=== PATIENT | female | born 1985 | race Caucasian/White ===

== ENCOUNTER 2017-01-12 19:20 | Emergency (ER) | payer SELFPAY ==
[~2017-01-12] VITALS: Ht 170.2 cm; Wt 81.6 kg
[2017-01-12] MEDS ORDERED: FAMOTIDINE 20 MG TABLET. PO ONE (19:45)
[2017-01-12] MEDS ORDERED: LIDO:MAALOX:DONNATAL 1:1:1 15 ML SINGLE DOSE SWSW ONE (19:45)
[2017-01-12] MEDS ORDERED: ONDANSETRON ODT 4 MG TAB.RAPDIS. PO ONE (19:45)
--- NOTE | 2017-01-12 19:49 | PHYS DOC ---
Past Medical History Past Medical History: Other Additional Past Medical Histor: LUPUS Past Surgical History: Other Additional Past Surgical Histo: GASTRIC SLEEVE IN 2012 Alcohol Use: None Drug Use: None Adult General Chief Complaint Chief Complaint: ABDOMINAL PAIN HPI HPI Patient is a 31 year old female with history of gastric sleeve surgery in 2011 performed at [facility] and [facility] who presents with epigastric pain, not radiating to her back starting approximately 4 days ago. Patient also reports nausea and vomiting. Symptoms are worse with eating. It contains stomach contact an occasional bile. No hematemesis or coffee-ground emesis. No flank pain, fevers, chills, sweats, urinary frequency urgency. No other abdominal surgeries. Last menstrual period was 5 days ago. Patient has a control implant in place. [] Review of Systems Review of Systems Review symptoms as per history of present illness. All other review symptoms are negative. All other systems were reviewed and found to be within normal limits, except as documented in this note. Current Medications Current Medications Current Medications Medications (Trade) Dose Ordered Sig/Jose Start Time Stop Time Status Last Admin Dose Admin Famotidine (Pepcid) 20 mg 1X ONCE 01/12/17 19:45 01/12/17 19:46 DC 01/12/17 19:49 20 MG Fentanyl Citrate (Fentanyl 2ml Vial) 50 mcg 1X ONCE 01/12/17 20:15 01/12/17 20:16 DC 01/12/17 20:23 50 MCG Info (Do NOT chart on this entry -- for MONITORING) 1 each PRN DAILY PRN 01/12/17 21:15 01/14/17 21:14 Iohexol (Omnipaque 300 Mg/ml) 75 ml 1X ONCE 01/12/17 21:15 01/12/17 21:16 DC 01/12/17 21:19 75 ML Morphine Sulfate 10 mg STK-MED ONCE 01/12/17 21:50 01/12/17 21:51 DC Multi-Ingredient Mouthwash/Gargle (Gi Cocktail Single Dose) 15 ml 1X ONCE 01/12/17 19:45 01/12/17 19:46 DC 01/12/17 19:49 15 ML Ondansetron HCl (Zofran Odt) 4 mg 1X ONCE 01/12/17 19:45 01/12/17 19:46 DC 01/12/17 19:49 4 MG Allergies Allergies Allergies Coded Allergies Type Severity Reaction Last Updated Verified diphenhydramine Allergy Intermediate Rash 03/02/14 No gelatin Allergy Intermediate Rash 03/02/14 No tramadol Allergy Intermediate Rash 03/02/14 No Physical Exam Physical Exam Constitutional: Well developed, well nourished, discomfort secondary to pain. [] HENT: Normocephalic, atraumatic, bilateral external ears normal, oropharynx moist, no oral exudates, nose normal. [] Eyes: PERRLA, EOMI, conjunctiva normal, no discharge. [] Neck: Normal range of motion, no tenderness, supple, no stridor. [] Cardiovascular:Heart rate regular rhythm, no murmur [] Lungs & Thorax: Bilateral breath sounds clear to auscultation [] Abdomen: Bowel sounds normal, soft, epigastric pain, tenderness, no rebound rigidity or guarding. Obesity compromising examination.[] Skin: Warm, dry, no erythema, no rash. [] Back: No tenderness, no CVA tenderness. [] Extremities: No tenderness, no cyanosis, no clubbing, ROM intact, no edema. [] Current Patient Data Vital Signs Vital Signs Date Time Temp Pulse Resp B/P (MAP) Pulse Ox O2 Delivery O2 Flow Rate FiO2 01/12/17 21:53 20 97 Room Air 01/12/17 21:45 66 109/67 (81) 01/12/17 19:29 98.0 98.0 Lab Values Laboratory Tests Test 01/12/17 19:22 01/12/17 20:10 Urine Collection Type Unknown Urine Color Yellow Urine Clarity Clear Urine pH 6.0 Urine Specific [place] 1.025 Urine Protein Negative mg/dL (NEG-TRACE) Urine Glucose (UA) Negative mg/dL (NEG) Urine Ketones (Stick) Trace mg/dL (NEG) Urine Blood Large (NEG) Urine Nitrite Negative (NEG) Urine Bilirubin Negative (NEG) Urine Urobilinogen Dipstick 0.2 mg/dL (0.2 mg/dL) Urine Leukocyte Esterase Small (NEG) Urine RBC 6-10 /HPF (0-2) Urine WBC 5-10 /HPF (0-4) Urine Squamous Epithelial Cells Mod /LPF Urine Bacteria Few /HPF (0-FEW) Urine Mucus Mod /LPF Urine Trichomonas Present White Blood Count 12.3 x10^3/uL (4.0-11.0) H Red Blood Count 4.20 x10^6/uL (3.50-5.40) Hemoglobin 13.3 g/dL (12.0-15.5) Hematocrit 40.6 % (36.0-47.0) Mean Corpuscular Volume 97 fL (79-100) Mean Corpuscular Hemoglobin 32 pg (25-35) Mean Corpuscular Hemoglobin Concent 33 g/dL (31-37) Red Cell Distribution Width 12.2 % (11.5-14.5) Platelet Count 187 x10^3/uL (140-400) Neutrophils (%) (Auto) 72 % (31-73) Lymphocytes (%) (Auto) 20 % (24-48) L Monocytes (%) (Auto) 6 % (0-9) Eosinophils (%) (Auto) 1 % (0-3) Basophils (%) (Auto) 0 % (0-3) Neutrophils # (Auto) 8.8 x10^3uL (1.8-7.7) H Lymphocytes # (Auto) 2.5 x10^3/uL (1.0-4.8) Monocytes # (Auto) 0.8 x10^3/uL (0.0-1.1) Eosinophils # (Auto) 0.1 x10^3/uL (0.0-0.7) Basophils # (Auto) 0.1 x10^3/uL (0.0-0.2) Sodium Level 141 mmol/L (136-145) Potassium Level 3.9 mmol/L (3.5-5.1) Chloride Level 104 mmol/L (98-107) Carbon Dioxide Level 26 mmol/L (21-32) Anion Gap 11 (6-14) Blood Urea Nitrogen 13 mg/dL (7-20) Creatinine 0.8 mg/dL (0.6-1.0) Estimated GFR (Cockcroft-Gault) 84.2 BUN/Creatinine Ratio 16 (6-20) Glucose Level 103 mg/dL (70-99) H Calcium Level 9.0 mg/dL (8.5-10.1) Total Bilirubin 0.5 mg/dL (0.2-1.0) Aspartate Amino Transferase (AST) 28 U/L (15-37) Alanine Aminotransferase (ALT) 18 U/L (14-59) Alkaline Phosphatase 63 U/L (46-116) Total Protein 7.5 g/dL (6.4-8.2) Albumin 4.1 g/dL (3.4-5.0) Albumin/Globulin Ratio 1.2 (1.0-1.7) Lipase 109 U/L (73-393) Serum Test, Qualitative Negative (NEG) Laboratory Tests 01/12/17 20:10 Laboratory Tests 01/12/17 20:10 EKG EKG [] Radiology/Procedures Radiology/Procedures [CT abdominal pelvis: gallstones without evidence of cholecystitis. ] Course & Med Decision Making Course & Med Decision Making Pertinent Labs and Imaging studies reviewed. (See chart for details) [Pain improved with tx. Recommend follow PCP f/u for general sx referral. Return precautions reviewed. ] Dragon Disclaimer Dragon Disclaimer This electronic medical record was generated, in whole or in part, using a voice recognition dictation system. Departure Departure Impression: Primary Impression: Biliary colic Disposition: 01 HOME, SELF-CARE Condition: Referrals: NO PCP (PCP) ALANNA SANON DO Jan 12, 2017 19:49
[2017-01-12 20:10] LABS: BILIRUBIN,URINE NEGATIVE (NEG); GLUCOSE,URINE NEGATIVE (NEG); NITRITE,URINE NEGATIVE (NEG); PROTEIN,URINE NEGATIVE (NEG-TRACE); UROBILINOGEN,URINE 0.2 mg/dL (0.2 mg/dL)
[2017-01-12] MEDS ORDERED: fentaNYL PF VIAL 100 MCG/2 ML VIAL IV ONE (20:15)
[2017-01-12 20:21] LABS: BACTERIA,URINE FEW /HPF (0-FEW); SQUAMOUS EPITHELIAL CELL,UR MOD /LPF; TRICHOMONAS,URINE PRESENT
[2017-01-12 20:25] LABS: BASO # 0.1 x10^3/uL (0.0-0.2); BASO % 0 % (0-3); EOS % 1 % (0-3); HEMATOCRIT 40.6 % (36.0-47.0); HEMOGLOBIN 13.3 g/dL (12.0-15.5); LYMPH # 2.5 x10^3/uL (1.0-4.8); LYMPH % 20 % (24-48); MEAN CORPUSCULAR HEMOGLOBIN 32 pg (25-35); MEAN CORPUSCULAR HGB CONC 33 g/dL (31-37); MEAN CORPUSCULAR VOLUME 97 fL (79-100); MONO % 6 % (0-9); NEUT % 72 % (31-73); PLATELET COUNT 187 x10^3/uL (140-400); RED CELL DISTRIBUTION WIDTH 12.2 % (11.5-14.5); WHITE BLOOD COUNT 12.3 x10^3/uL (4.0-11.0)
[2017-01-12 20:49] LABS: CREATININE 0.8 mg/dL (0.6-1.0); GFR 84.2; POTASSIUM 3.9 mmol/L (3.5-5.1)
[2017-01-12 20:50] LABS: NEG OBC SER NEG; POS OBC SER POS
[2017-01-12 20:55] LABS: ALBUMIN 4.1 g/dL (3.4-5.0); ALBUMIN/GLOBULIN RATIO 1.2 (1.0-1.7); TOTAL BILIRUBIN 0.5 mg/dL (0.2-1.0); TOTAL PROTEIN 7.5 g/dL (6.4-8.2)
[2017-01-12] MEDS ORDERED: CONTRAST GIVEN MC PRN (21:15)
[2017-01-12] MEDS ORDERED: IOHEXOL 300 MG/ML 100ML VIAL. IV ONE (21:15)
--- NOTE | 2017-01-12 21:36 | RAD ---
CT abdomen and pelvis with contrast 01/12/2017 CLINICAL INDICATION: Severe upper abdominal pain. COMPARISON: None. TECHNIQUE: Multiple CT images of the abdomen and pelvis were obtained following the intravenous administration of 75 mL Omnipaque 300. *One or more of the following individualized dose reduction techniques were utilized for this examination: 1. Automated exposure control. 2. Adjustment of the mA and/or kV according to patient size. 3. Use of iterative reconstruction technique. FINDINGS: Heart size is normal. Visualized lung bases are clear. Liver, spleen, adrenal glands, pancreas and kidneys are unremarkable. There is layering cholelithiasis in a nondilated gallbladder. No intra or extra hepatic biliary ductal dilatation. Abdominal aorta is normal in caliber. Major portal, splenic and visualized appear mesenteric veins are patent. No retroperitoneal or mesenteric lymphadenopathy. There are postsurgical changes about the stomach. No bowel obstruction. The appendix is normal in appearance. No abdominal free fluid. Urinary bladder is decompressed. Uterus is present though incompletely evaluated by CT. No iliac or inguinal lymphadenopathy. There are no destructive osseous lesions. IMPRESSION: 1. Cholelithiasis in a nondilated gallbladder. 2. No bowel obstruction or ascites. Electronically signed by: Wilver Cowan MD (01/12/2017 9:33 PM) [facility]
[2017-01-12] MEDS ORDERED: MORPHINE SULFATE 10 MG/ML VIAL. ONE (21:50)
[2017-01-12 22:00] VITALS: BP 134/72
[2017-01-12] MEDS ORDERED: MORPHINE SULFATE 10 MG/ML VIAL. IV ONE (22:00)
== END 2017-01-12 22:13 | disposition home or self-care (01) ==
LOC: ER 19:20
DX: K80.50 Calculus of bile duct without cholangitis or cholecystitis without obstruction (principal); M32.9 Systemic lupus erythematosus, unspecified; Z98.84 Bariatric surgery status; Z88.5 Allergy status to narcotic agent; Z88.8 Allergy status to other drugs, medicaments and biological substances
CPT/HCPCS: 36415; 74177; 80053; 81001; 83690; 84703; 85025; 87086; 96374; 96375; 99285; J2270; J3010; Q0162; Q9967

== ENCOUNTER 2017-06-29 07:55 | Emergency (ER) | payer SELFPAY ==
[2017-06-29] MEDS ORDERED: diphenhydrAMINE HCL 25 MG CAPSULE PO (08:30)
[2017-06-29] MEDS ORDERED: DIPHTH,PERTUSS(ACELL),TET TOX 0.5 ML DISP.SYRIN. VAX IM (08:30)
[2017-06-29] MEDS: FLUORESCEIN OPHTH TEST STRIP. OD (08:37)
[2017-06-29] MEDS: hydrOXYzine 10 MG TABLET PO (08:37)
[2017-06-29] MEDS: ONDANSETRON ODT 4 MG TAB.RAPDIS. PO (08:37)
[2017-06-29] MEDS: HYDROcodone/APAP 5/325MG 1 TAB TABLET PO (08:37)
[2017-06-29] MEDS: PROPARACAINE 0.5% OPHTH SOLUTION 15ML BOTTLE. OD (08:37)
== END 2017-06-29 09:40 | disposition home or self-care (01) ==
LOC: ER 07:55
DX: S05.01XA Injury of conjunctiva and corneal abrasion without foreign body, right eye, initial encounter (principal); Z98.890 Other specified postprocedural states; W22.8XXA Striking against or struck by other objects, initial encounter; Y93.89 Activity, other specified; Y99.8 Other external cause status; Y92.89 Other specified places as the place of occurrence of the external cause
CPT/HCPCS: 99284; Q0162

== ENCOUNTER 2017-10-26 22:54 | Emergency (ER) | payer SELFPAY ==
[~2017-10-26] VITALS: Ht 170.2 cm; Wt 104.3 kg
[~2017-10-26 22:54] MED LIST: ERYT1OIN6 OP; HYDR-971 PO
[2017-10-27 00:36] LABS: BILIRUBIN,URINE NEGATIVE (NEG); CLARITY,URINE CLEAR; COLOR,URINE YELLOW; NITRITE,URINE NEGATIVE (NEG); PH,URINE 6.5; PROTEIN,URINE 30 mg/dL (NEG-TRACE); UROBILINOGEN,URINE 0.2 mg/dL (0.2 mg/dL)
[2017-10-27 00:47] LABS: AMORPHOUS SEDIMENT,UR PRESENT /HPF; BACTERIA,URINE FEW /HPF (0-FEW); SQUAMOUS EPITHELIAL CELL,UR FEW /LPF; TRICHOMONAS,URINE PRESENT
[2017-10-27] MEDS ORDERED: ONDANSETRON PF 4 MG/2 ML VIAL. IV ONE (01:00)
[2017-10-27] MEDS ORDERED: MORPHINE SULFATE 4 MG/ML VIAL. IV ONE ×3 (01:00→02:00)
--- NOTE | 2017-10-27 01:05 | RAD ---
Examination: Ultrasound abdomen limited HISTORY: History of right upper quadrant pain COMPARISON: None available FINDINGS: The pancreas is not well-visualized due to bowel gas. There is mild increased echogenicity identified in the liver likely mild hepatic steatosis. The right lobe of the liver measures 15.6 cm. Multiple echogenicities identified within the gallbladder likely gallstones. The gallbladder wall thickness measures 2.6 mm. The common bile duct measures 3.6 mm in diameter. The right kidney measures 10.3 cm in length. The visualized IVC is within normal limits of dimension. IMPRESSION: 1. Cholelithiasis. 2. Hepatic steatosis. Electronically signed by: Jorge Montemayor MD (10/27/2017 1:02 AM) [id number]
[2017-10-27 01:49] LABS: BASO % 0 % (0-3); EOS # 0.1 x10^3/uL (0.0-0.7); EOS % 1 % (0-3); HEMOGLOBIN 13.4 g/dL (12.0-15.5); LYMPH # 2.7 x10^3/uL (1.0-4.8); LYMPH % 22 % (24-48); MEAN CORPUSCULAR HEMOGLOBIN 33 pg (25-35); MEAN CORPUSCULAR HGB CONC 34 g/dL (31-37); MEAN CORPUSCULAR VOLUME 96 fL (79-100); MONO # 0.7 x10^3/uL (0.0-1.1); MONO % 6 % (0-9); NEUT # 8.8 x10^3uL (1.8-7.7); NEUT % 72 % (31-73); PLATELET COUNT 186 x10^3/uL (140-400); RED BLOOD COUNT 4.06 x10^6/uL (3.50-5.40); RED CELL DISTRIBUTION WIDTH 12.4 % (11.5-14.5); WHITE BLOOD COUNT 12.3 x10^3/uL (4.0-11.0)
--- NOTE | 2017-10-27 01:58 | PHYS DOC ---
Past Medical History Past Medical History: Migraines, Other Additional Past Medical Histor: LUPUS Past Surgical History: Other Additional Past Surgical Histo: GASTRIC SLEEVE IN 2012 Alcohol Use: None Drug Use: None Adult General Chief Complaint Chief Complaint: ABDOMINAL PAIN [facility] HPI Patient is a 31 year old female who presents with epigastric pain. She has been having pain over the last 48 hours but it worsened this evening. Pain is located primarily over the epigastrium. The patient does say she has a prior history of known cholelithiasis. This evening, she did have some nausea and one episode of emesis. She denies hematemesis. No diarrhea. She denies vaginal complaints or urinary complaints. She relates that these symptoms do feel similar to prior pain from her gallbladder. Review of Systems Review of Systems Constitutional: Denies fever or chills Eyes: Denies change in visual acuity HENT: Denies nasal congestion Respiratory: Denies cough Cardiovascular: No additional information not addressed in HPI GI: Denies abdominal pain, nausea : Denies dysuria or hematuria Musculoskeletal: Denies back pain Integument: Denies rash or skin lesions Neurologic: Denies headache Endocrine: Denies polyuria All other systems were reviewed and found to be within normal limits, except as documented in this note. Current Medications Current Medications Current Medications Medications (Trade) Dose Ordered Sig/Jose Start Time Stop Time Status Last Admin Dose Admin Famotidine (Pepcid Vial) 20 mg 1X ONCE 10/27/17 02:00 10/27/17 02:01 DC 10/27/17 01:57 20 MG Morphine Sulfate (Morphine Sulfate) 6 mg 1X ONCE 10/27/17 02:00 10/27/17 02:05 DC 10/27/17 02:01 6 MG Multi-Ingredient Mouthwash/Gargle (Gi Cocktail) 20 ml 1X ONCE 10/27/17 03:00 10/27/17 03:01 DC 10/27/17 02:54 20 ML Ondansetron HCl (Zofran) 4 mg 1X ONCE 10/27/17 01:00 10/27/17 01:01 DC 10/27/17 01:57 4 MG Allergies Allergies Allergies Coded Allergies Type Severity Reaction Last Updated Verified diphenhydramine Allergy Intermediate Rash 03/02/14 No gelatin Allergy Intermediate Rash 03/02/14 No tramadol Allergy Intermediate Rash 03/02/14 No Physical Exam Physical Exam Constitutional: Well developed, well nourished, no acute distress, non-toxic appearance HENT: Normocephalic, atraumatic, bilateral external ears normal Eyes: PERRLA, EOMI, conjunctiva normal Neck: Normal range of motion Cardiovascular:Heart rate regular rhythm, no murmur Lungs & Thorax: Bilateral breath sounds clear to auscultation Abdomen: Bowel sounds normal, soft, non-distended. mild TTP over the epigastrium but no guarding or rebound Skin: Warm, dry, no erythema Back: No tenderness Extremities: No tenderness, no cyanosis Neurologic: Alert and oriented X 3 Psychologic: Affect normal Current Patient Data Vital Signs Vital Signs Date Time Temp Pulse Resp B/P (MAP) Pulse Ox O2 Delivery O2 Flow Rate FiO2 10/27/17 02:01 16 Room Air 10/27/17 00:18 98.3 72 119/78 (92) 100 98.3 Lab Values Laboratory Tests Test 10/27/17 00:30 10/27/17 00:31 10/27/17 01:43 Urine Collection Type Unknown Urine Color Yellow Urine Clarity Clear Urine pH 6.5 Urine Specific [place] 1.020 Urine Protein 30 mg/dL (NEG-TRACE) Urine Glucose (UA) Negative mg/dL (NEG) Urine Ketones (Stick) Negative mg/dL (NEG) Urine Blood Small (NEG) Urine Nitrite Negative (NEG) Urine Bilirubin Negative (NEG) Urine Urobilinogen Dipstick 0.2 mg/dL (0.2 mg/dL) Urine Leukocyte Esterase Large (NEG) Urine RBC 3-5 /HPF (0-2) Urine WBC 11-20 /HPF (0-4) Urine Squamous Epithelial Cells Few /LPF Urine Amorphous Sediment Present /HPF Urine Bacteria Few /HPF (0-FEW) Urine Mucus Slight /LPF Urine Trichomonas Present POC Urine HCG, Qualitative Hcg negative (Negative) White Blood Count 12.3 x10^3/uL (4.0-11.0) H Red Blood Count 4.06 x10^6/uL (3.50-5.40) Hemoglobin 13.4 g/dL (12.0-15.5) Hematocrit 39.0 % (36.0-47.0) Mean Corpuscular Volume 96 fL (79-100) Mean Corpuscular Hemoglobin 33 pg (25-35) Mean Corpuscular Hemoglobin Concent 34 g/dL (31-37) Red Cell Distribution Width 12.4 % (11.5-14.5) Platelet Count 186 x10^3/uL (140-400) Neutrophils (%) (Auto) 72 % (31-73) Lymphocytes (%) (Auto) 22 % (24-48) L Monocytes (%) (Auto) 6 % (0-9) Eosinophils (%) (Auto) 1 % (0-3) Basophils (%) (Auto) 0 % (0-3) Neutrophils # (Auto) 8.8 x10^3uL (1.8-7.7) H Lymphocytes # (Auto) 2.7 x10^3/uL (1.0-4.8) Monocytes # (Auto) 0.7 x10^3/uL (0.0-1.1) Eosinophils # (Auto) 0.1 x10^3/uL (0.0-0.7) Basophils # (Auto) 0.0 x10^3/uL (0.0-0.2) Sodium Level 140 mmol/L (136-145) Potassium Level 3.7 mmol/L (3.5-5.1) Chloride Level 104 mmol/L (98-107) Carbon Dioxide Level 24 mmol/L (21-32) Anion Gap 12 (6-14) Blood Urea Nitrogen 12 mg/dL (7-20) Creatinine 0.7 mg/dL (0.6-1.0) Estimated GFR (Cockcroft-Gault) 98.3 Glucose Level 107 mg/dL (70-99) H Calcium Level 8.6 mg/dL (8.5-10.1) Total Bilirubin 0.3 mg/dL (0.2-1.0) Direct Bilirubin 0.1 mg/dL (0.0-0.2) Aspartate Amino Transferase (AST) 42 U/L (15-37) H Alanine Aminotransferase (ALT) 34 U/L (14-59) Alkaline Phosphatase 67 U/L (46-116) Total Protein 7.5 g/dL (6.4-8.2) Albumin 4.0 g/dL (3.4-5.0) Lipase 121 U/L (73-393) Laboratory Tests 10/27/17 01:43 Laboratory Tests 10/27/17 01:43 EKG EKG [] Radiology/Procedures Radiology/Procedures RUQ US: cholelithiasis but no cholecystitis. Course & Med Decision Making Course & Med Decision Making Pertinent Labs and Imaging studies reviewed. (See chart for details) 01:05: Patient is seen and examined. No acute distress. PE as documented above. RUQ US ordered. Medications for pain/nausea. 03:00: All results are reviewed. The patient does have pyuria. Her ultrasound of the right upper quadrant did not reveal any acute findings. Her abdominal exam is positive only for mild subjective tenderness to palpation over the epigastrium but no guarding or rebound. Her abdomen is otherwise soft and nontender. No indication for CT scan. Unclear if she has a UTI. This will be treated empirically. Urine culture is added to her lab panel. In the ER, she was given some intravenous medication for pain control as well as a GI cocktail. Her pain was improved. Her presentation could represent gastritis or symptomatic cholelithiasis without cholecystitis. Patient will be discharged home. She is referred to follow up with general surgery regarding cholecystectomy which she had been previously recommended to have. Placed on macrobid x 5 days for tx of possible UTI. Dragon Disclaimer Dragon Disclaimer This electronic medical record was generated, in whole or in part, using a voice recognition dictation system. Departure Departure Referrals: NO PCP (PCP) MAIK MAS DO Oct 27, 2017 01:58
[2017-10-27] MEDS ORDERED: FAMOTIDINE 20 MG/2 ML VIAL IVP ONE (02:00)
[2017-10-27 02:01] LABS: CALCIUM 8.6 mg/dL (8.5-10.1); CREATININE 0.7 mg/dL (0.6-1.0); GFR 98.3; POTASSIUM 3.7 mmol/L (3.5-5.1)
[2017-10-27 02:06] LABS: DIRECT BILIRUBIN 0.1 mg/dL (0.0-0.2); TOTAL BILIRUBIN 0.3 mg/dL (0.2-1.0); TOTAL PROTEIN 7.5 g/dL (6.4-8.2)
[2017-10-27] MEDS ORDERED: LIDO:MAALOX 1:1 20 ML SINGLE DOSE. PO ONE (03:00)
[2017-10-27] MEDS ORDERED: METO10TA81 PO (03:11)
[2017-10-27] MEDS ORDERED: OXYC5TAB95 PO (03:11)
[2017-10-27 03:21] VITALS: BP 123/68
[2017-10-27] MEDS ORDERED: NITR100C62 PO (03:24)
== END 2017-10-27 03:32 | disposition home or self-care (01) ==
LOC: ER 22:54
DX: R10.13 Epigastric pain (principal); R11.2 Nausea with vomiting, unspecified; G43.909 Migraine, unspecified, not intractable, without status migrainosus; Z88.8 Allergy status to other drugs, medicaments and biological substances; Z88.5 Allergy status to narcotic agent; Z91.018 Allergy to other foods
CPT/HCPCS: 36415; 76705; 80048; 80076; 81001; 81025; 83690; 85025; 87086; 96374; 96375; 99285; J2270; J2405; S0028

== ENCOUNTER 2018-03-03 11:12 | Emergency (ER) | payer SELFPAY ==
[~2018-03-03] VITALS: Ht 170.2 cm; Wt 99.8 kg
[~2018-03-03 11:12] MED LIST changes: +HYDR-3164 PO; -HYDR-971 PO; +METO10TA81 PO; +NITR100C62 PO; +OXYC5TAB4 PO
[2018-03-03 11:49] VITALS: BP 120/56
[2018-03-03 11:56] LABS: BILIRUBIN,URINE NEGATIVE (NEG); CLARITY,URINE TURBID; COLOR,URINE YELLOW; NITRITE,URINE NEGATIVE (NEG); PROTEIN,URINE NEGATIVE (NEG-TRACE)
[2018-03-03 12:06] LABS: AMORPHOUS SEDIMENT,UR PRESENT /HPF; BACTERIA,URINE 0 /HPF (0-FEW); RBC,URINE 0 /HPF (0-2); SQUAMOUS EPITHELIAL CELL,UR OCC /LPF; WBC,URINE OCC /HPF (0-4)
[2018-03-03] MEDS ORDERED: fentaNYL PF VIAL 100 MCG/2 ML VIAL IV ONE (12:45)
[2018-03-03] MEDS ORDERED: ONDANSETRON PF 4 MG/2 ML VIAL. IV ONE ×3 (12:45→13:45)
[2018-03-03 12:46] LABS: BASO % 1 % (0-3); EOS # 0.2 x10^3/uL (0.0-0.7); EOS % 2 % (0-3); HEMATOCRIT 40.8 % (36.0-47.0); HEMOGLOBIN 13.5 g/dL (12.0-15.5); LYMPH % 38 % (24-48); MEAN CORPUSCULAR HEMOGLOBIN 32 pg (25-35); MEAN CORPUSCULAR HGB CONC 33 g/dL (31-37); MEAN CORPUSCULAR VOLUME 96 fL (79-100); MONO # 0.6 x10^3/uL (0.0-1.1); MONO % 7 % (0-9); NEUT # 4.1 x10^3uL (1.8-7.7); NEUT % 53 % (31-73); PLATELET COUNT 188 x10^3/uL (140-400); RED BLOOD COUNT 4.26 x10^6/uL (3.50-5.40); WHITE BLOOD COUNT 7.8 x10^3/uL (4.0-11.0)
[2018-03-03 13:00] LABS: CREATININE 0.7 mg/dL (0.6-1.0); GFR 97.6; POTASSIUM 3.3 mmol/L (3.5-5.1)
[2018-03-03] MEDS ORDERED: cefTRIAXone IV Push 1 GM VIAL. IVP ONE (13:00)
[2018-03-03 13:06] LABS: ALBUMIN 4.1 g/dL (3.4-5.0); ALBUMIN/GLOBULIN RATIO 1.1 (1.0-1.7); TOTAL BILIRUBIN 0.8 mg/dL (0.2-1.0); TOTAL PROTEIN 7.9 g/dL (6.4-8.2)
[2018-03-03] MEDS ORDERED: CONTRAST GIVEN. MC PRN (13:30)
[2018-03-03] MEDS ORDERED: IOHEXOL 300 MG/ML 100ML VIAL. IV ONE (13:30)
[2018-03-03 13:57] LABS: AMPHETAMINE/METHAMPHETAMINE NEG (NEG); BARBITURATES NEG (NEG); BENZODIAZEPINES POS (NEG); CANNABINOIDS POS (NEG); COCAINE NEG (NEG); METHADONE NEG (NEG); OPIATES NEG (NEG); PHENCYCLIDINE NEG (NEG)
--- NOTE | 2018-03-03 14:19 | RAD ---
CT of the abdomen and pelvis with contrast, 03/03/2018: HISTORY: Abdominal pain Multidetector CT imaging was performed following an IV bolus injection of iodinated contrast material. No oral contrast material was administered for this study. No hepatic abnormality is detected. There are numerous gallstones in the gallbladder. The gallbladder is at the upper limits of normal in size. No gallbladder wall thickening or pericholecystic edema is seen. The pancreas is unremarkable. The spleen is of normal size. The kidneys show no evidence of obstruction or mass. No adrenal abnormality is detected. The abdominal aorta is unremarkable. No abdominal or pelvic adenopathy is seen. No uterine abnormality is detected. The bowel loops are not dilated. A portion of the appendix is visualized and it shows no abnormality. There are surgical sutures related to the stomach compatible with the given history of gastric sleeve surgery. No free fluid or free air is evident in the abdomen or pelvis. 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 IMPRESSION: 1. Cholelithiasis. 2. No acute abdominal or pelvic abnormality is detected. PQRS Compliance Statement: One or more of the following individualized dose reduction techniques were utilized for this examination: 1. Automated exposure control 2. Adjustment of the mA and/or kV according to patient size 3. Use of iterative reconstruction technique Electronically signed by: Adi Tamez MD (03/03/2018 2:14 PM) [facility]
[2018-03-03] MEDS ORDERED: CEPH500T PO (14:55)
[2018-03-03] MEDS ORDERED: ONDA4TAB12 PO (14:55)
[2018-03-03] MEDS ORDERED: HYDR-3164 PO (14:55)
--- NOTE | 2018-03-03 14:55 | PHYS DOC ---
Past Medical History Past Medical History: Migraines, Other Additional Past Medical Histor: LUPUS Past Surgical History: Other Additional Past Surgical Histo: GASTRIC SLEEVE IN 2012 Alcohol Use: None Drug Use: None Adult General Chief Complaint Chief Complaint: ABDOMINAL PAIN HPI HPI Patient is a 32 year old female with a history of gastric sleeve who presents today complaining of moderate generalized upper abdominal pain worse on the left upper quadrant that began 2-3 days ago. Patient is also complaining of nausea and vomiting. She states she's had similar pain before when she had cholelithiasis. Review of Systems Review of Systems Constitutional: Denies fever or chills [] Eyes: Denies change in visual acuity, redness, or eye pain [] HENT: Denies nasal congestion or sore throat [] Respiratory: Denies cough or shortness of breath [] Cardiovascular: No additional information not addressed in HPI [] GI: Reports bilateral upper abdominal pain worse on the left upper quadrant, denies bloody stools or diarrhea [] : Denies dysuria or hematuria [] Musculoskeletal: Denies back pain or joint pain [] Integument: Denies rash or skin lesions [] Neurologic: Denies headache, focal weakness or sensory changes [] ] All other systems were reviewed and found to be within normal limits, except as documented in this note. Current Medications Current Medications Current Medications Medications (Trade) Dose Ordered Sig/Jose Start Time Stop Time Status Last Admin Dose Admin Ceftriaxone Sodium (Rocephin) 1 gm 1X ONCE 03/03/18 13:00 03/03/18 13:01 DC 03/03/18 12:54 1 GM Fentanyl Citrate (Fentanyl 2ml Vial) 50 mcg 1X ONCE 03/03/18 12:45 03/03/18 12:46 DC 03/03/18 12:55 50 MCG Info (CONTRAST GIVEN -- Rx MONITORING) 1 each PRN DAILY PRN 03/03/18 13:30 03/05/18 13:29 Iohexol (Omnipaque 300 Mg/ml) 75 ml 1X ONCE 03/03/18 13:30 03/03/18 13:31 DC 03/03/18 13:30 75 ML Ondansetron HCl (Zofran) 4 mg 1X ONCE 03/03/18 13:45 03/03/18 13:48 DC Allergies Allergies Allergies Coded Allergies Type Severity Reaction Last Updated Verified diphenhydramine Allergy Intermediate Rash 03/02/14 No gelatin Allergy Intermediate Rash 03/02/14 No tramadol Allergy Intermediate Rash 03/02/14 No Physical Exam Physical Exam Constitutional: Well developed, well nourished, no acute distress, non-toxic appearance. [] HENT: Normocephalic, atraumatic, bilateral external ears normal, oropharynx moist, no oral exudates, nose normal. [] Eyes: PERRLA, EOMI, conjunctiva normal, no discharge. [] Neck: Normal range of motion, no tenderness, supple, no stridor. [] Cardiovascular:Heart rate regular rhythm, no murmur [] Lungs & Thorax: Bilateral breath sounds clear to auscultation [] Abdomen: Bowel sounds normal, soft, no right upper quadrant tenderness on exam, no right lower quadrant tenderness, slight tenderness the left upper quadrant, no left lower quadrant tenderness, no masses, no pulsatile masses. Negative psoas sign, negative obturator sign, no guarding, no rebound pain or tenderness Skin: Warm, dry, no erythema, no rash. [] Back: No tenderness, no CVA tenderness. [] Extremities: No tenderness, no cyanosis, no clubbing, ROM intact, no edema. [] Neurologic: Alert and oriented X 3, normal motor function, normal sensory function, no focal deficits noted. [] Psychologic: Affect normal, judgement normal, mood normal. [] Current Patient Data Vital Signs Vital Signs Date Time Temp Pulse Resp B/P (MAP) Pulse Ox O2 Delivery O2 Flow Rate FiO2 03/03/18 12:55 18 03/03/18 11:49 98.4 82 120/56 (77) 99 Room Air 98.4 Lab Values Laboratory Tests Test 03/03/18 11:30 03/03/18 11:40 03/03/18 11:45 Urine Collection Type Unknown Urine Color Yellow Urine Clarity Turbid Urine pH 8.0 Urine Specific [place] 1.025 Urine Protein Negative mg/dL (NEG-TRACE) Urine Glucose (UA) Negative mg/dL (NEG) Urine Ketones (Stick) Negative mg/dL (NEG) Urine Blood Negative (NEG) Urine Nitrite Negative (NEG) Urine Bilirubin Negative (NEG) Urine Urobilinogen Dipstick 1.0 mg/dL (0.2 mg/dL) Urine Leukocyte Esterase Moderate (NEG) Urine RBC 0 /HPF (0-2) Urine WBC Occ /HPF (0-4) Urine Squamous Epithelial Cells Occ /LPF Urine Amorphous Sediment Present /HPF Urine Bacteria 0 /HPF (0-FEW) Urine Opiates Screen Neg (NEG) Urine Methadone Screen Neg (NEG) Urine Barbiturates Neg (NEG) Urine Phencyclidine Screen Neg (NEG) Urine Amphetamine/Methamphetamine Neg (NEG) Urine Benzodiazepines Screen Pos (NEG) Urine Cocaine Screen Neg (NEG) Urine Cannabinoids Screen Pos (NEG) Urine Ethyl Alcohol Neg (NEG) White Blood Count 7.8 x10^3/uL (4.0-11.0) Red Blood Count 4.26 x10^6/uL (3.50-5.40) Hemoglobin 13.5 g/dL (12.0-15.5) Hematocrit 40.8 % (36.0-47.0) Mean Corpuscular Volume 96 fL (79-100) Mean Corpuscular Hemoglobin 32 pg (25-35) Mean Corpuscular Hemoglobin Concent 33 g/dL (31-37) Red Cell Distribution Width 12.0 % (11.5-14.5) Platelet Count 188 x10^3/uL (140-400) Neutrophils (%) (Auto) 53 % (31-73) Lymphocytes (%) (Auto) 38 % (24-48) Monocytes (%) (Auto) 7 % (0-9) Eosinophils (%) (Auto) 2 % (0-3) Basophils (%) (Auto) 1 % (0-3) Neutrophils # (Auto) 4.1 x10^3uL (1.8-7.7) Lymphocytes # (Auto) 3.0 x10^3/uL (1.0-4.8) Monocytes # (Auto) 0.6 x10^3/uL (0.0-1.1) Eosinophils # (Auto) 0.2 x10^3/uL (0.0-0.7) Basophils # (Auto) 0.0 x10^3/uL (0.0-0.2) Sodium Level 141 mmol/L (136-145) Potassium Level 3.3 mmol/L (3.5-5.1) L Chloride Level 103 mmol/L (98-107) Carbon Dioxide Level 29 mmol/L (21-32) Anion Gap 9 (6-14) Blood Urea Nitrogen 15 mg/dL (7-20) Creatinine 0.7 mg/dL (0.6-1.0) Estimated GFR (Cockcroft-Gault) 97.6 BUN/Creatinine Ratio 21 (6-20) H Glucose Level 100 mg/dL (70-99) H Calcium Level 9.0 mg/dL (8.5-10.1) Total Bilirubin 0.8 mg/dL (0.2-1.0) Aspartate Amino Transferase (AST) 74 U/L (15-37) H Alanine Aminotransferase (ALT) 51 U/L (14-59) Alkaline Phosphatase 71 U/L (46-116) Total Protein 7.9 g/dL (6.4-8.2) Albumin 4.1 g/dL (3.4-5.0) Albumin/Globulin Ratio 1.1 (1.0-1.7) Lipase 155 U/L (73-393) Ethyl Alcohol Level < 10 mg/dL (0-10) POC Urine HCG, Qualitative Hcg negative (Negative) Laboratory Tests 03/03/18 11:40 Laboratory Tests 03/03/18 11:40 EKG EKG [] Radiology/Procedures Radiology/Procedures []PROCEDURE: CT ABD PELV W/ IV CONTRST ONLY CT of the abdomen and pelvis with contrast, 03/03/2018: HISTORY: Abdominal pain Multidetector CT imaging was performed following an IV bolus injection of iodinated contrast material. No oral contrast material was administered for this study. No hepatic abnormality is detected. There are numerous gallstones in the gallbladder. The gallbladder is at the upper limits of normal in size. No gallbladder wall thickening or pericholecystic edema is seen. The pancreas is unremarkable. The spleen is of normal size. The kidneys show no evidence of obstruction or mass. No adrenal abnormality is detected. The abdominal aorta is unremarkable. No abdominal or pelvic adenopathy is seen. No uterine abnormality is detected. The bowel loops are not dilated. A portion of the appendix is visualized and it shows no abnormality. There are surgical sutures related to the stomach compatible with the given history of gastric sleeve surgery. No free fluid or free air is evident in the abdomen or pelvis. 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 IMPRESSION: 1. Cholelithiasis. 2. No acute abdominal or pelvic abnormality is detected. PQRS Compliance Statement: One or more of the following individualized dose reduction techniques were utilized for this examination: 1. Automated exposure control 2. Adjustment of the mA and/or kV according to patient size 3. Use of iterative reconstruction technique Electronically signed by: Adi Tamez MD (03/03/2018 2:14 PM) [facility] DICTATED and SIGNED BY: ADI TAMEZ MD DATE: 03/03/18 1400 Course & Med Decision Making Course & Med Decision Making Pertinent Labs and Imaging studies reviewed. (See chart for details) This is a 32-year-old female patient presented to the ED today with complaints of generalized upper upper quadrant abdominal pain that has been going on for 2- 3 days, has history of gastric sleeve. Negative urine hCG, urine analysis noted for UTI. CBC, CMP, lipase with no acute findings. CT of the abdomen and pelvic was negative for any acute findings. Patient discharged with cephalexin for UTI. 10 tablets of [place] as needed for pain and zofran. Dragon Disclaimer Dragon Disclaimer This electronic medical record was generated, in whole or in part, using a voice recognition dictation system. Departure Departure Impression: Primary Impression: Urinary tract infection Additional Impressions: Nausea and vomiting Upper abdominal pain Disposition: HOME, SELF-CARE Condition: STABLE Referrals: NO PCP (PCP) MARIA GUADALUPE NICOLE MD Follow-up in 1-2 weeks Patient Instructions: Cholelithiasis, Urinary Tract Infection Additional Instructions: You were evaluated in the emergency room for abdominal pain with nausea and vomiting. You were noted to have cholelithiasis and urinary tract infection. Please complete the prescribed antibiotics. Follow-up with the provided general surgeon as well as your own doctor in 1-2 weeks. Scripts Hydrocodone/Apap 5-325 (NORCO 5-325 TABLET) 1 Each Tablet 1 TAB PO Q6HRS, #10 TAB Prov: MUTUNGADANA [employer] SUPERVISOR 03/03/18 Cephalexin (CEPHALEXIN) 500 Mg Tablet 1 TAB PO BID, #14 TAB Prov: MUTUNGA,DANA [employer]OR COACH SUPERVISOR 03/03/18 Ondansetron (ONDANSETRON ODT) 4 Mg Tab.rapdis 1 TAB PO PRN Q6-8HRS, #16 TAB Prov: MUTUNGA,DANA [employer]OR COACH SUPERVISOR 03/03/18 Problem Qualifiers Primary Impression: Urinary tract infection Urinary tract infection type: site unspecified Hematuria presence: without hematuria Qualified Codes: N39.0 - Urinary tract infection, site not specified Additional Impressions: Nausea and vomiting Vomiting type: unspecified Vomiting Intractability: unspecified Qualified Codes: R11.2 - Nausea with vomiting, unspecified DANA BILLINGSLEY APRN Mar 03, 2018 14:55
== END 2018-03-03 15:20 | disposition home or self-care (01) ==
LOC: ER 11:12
DX: N39.0 Urinary tract infection, site not specified (principal); R10.12 Left upper quadrant pain; R11.2 Nausea with vomiting, unspecified; K80.20 Calculus of gallbladder without cholecystitis without obstruction; M47.896 Other spondylosis, lumbar region; G43.909 Migraine, unspecified, not intractable, without status migrainosus; Z88.8 Allergy status to other drugs, medicaments and biological substances; Z88.5 Allergy status to narcotic agent
CPT/HCPCS: 36415; 74177; 80053; 80307; 81001; 81025; 83690; 85025; 87086; 96374; 96375; 96376; 99284; G0480; J0696; J2405; J3010; Q9967

== ENCOUNTER 2018-10-08 20:48 | Emergency (ER) | payer SELFPAY ==
[~2018-10-08] VITALS: Ht 170.2 cm; Wt 108.9 kg
[~2018-10-08 20:48] MED LIST changes: +CEPH500T PO; +ONDA4TAB12 PO
[2018-10-08 21:30] VITALS: BP 123/67
[2018-10-08 21:57] LABS: BASO % 0 % (0-3); EOS # 0.2 x10^3/uL (0.0-0.7); EOS % 2 % (0-3); HEMATOCRIT 39.2 % (36.0-47.0); HEMOGLOBIN 13.3 g/dL (12.0-15.5); LYMPH # 2.9 x10^3/uL (1.0-4.8); LYMPH % 27 % (24-48); MEAN CORPUSCULAR HEMOGLOBIN 32 pg (25-35); MEAN CORPUSCULAR HGB CONC 34 g/dL (31-37); MEAN CORPUSCULAR VOLUME 95 fL (79-100); MONO # 0.6 x10^3/uL (0.0-1.1); MONO % 5 % (0-9); NEUT # 7.2 x10^3/uL (1.8-7.7); NEUT % 66 % (31-73); PLATELET COUNT 168 x10^3/uL (140-400); RED BLOOD COUNT 4.11 x10^6/uL (3.50-5.40); RED CELL DISTRIBUTION WIDTH 12.3 % (11.5-14.5); WHITE BLOOD COUNT 10.9 x10^3/uL (4.0-11.0)
[2018-10-08] MEDS ORDERED: IV NORMAL SALINE 1000ML BAG 1,000 ML IV ONE (22:00)
[2018-10-08] MEDS ORDERED: DEXAMETHASONE SOD PHOS 20 MG/5 ML VIAL. IV ONE (22:00)
[2018-10-08] MEDS ORDERED: KETOROLAC 15 MG/ML VIAL. IV ONE (22:00)
[2018-10-08] MEDS ORDERED: ONDANSETRON PF 4 MG/2 ML VIAL. IV ONE (22:00)
[2018-10-08 22:27] LABS: CALCIUM 8.9 mg/dL (8.5-10.1); CREATININE 0.7 mg/dL (0.6-1.0); GFR 97.6; POTASSIUM 3.4 mmol/L (3.5-5.1)
[2018-10-08 22:29] LABS: ALBUMIN 4.1 g/dL (3.4-5.0); ALBUMIN/GLOBULIN RATIO 1.1 (1.0-1.7); TOTAL BILIRUBIN 0.3 mg/dL (0.2-1.0); TOTAL PROTEIN 7.7 g/dL (6.4-8.2)
[2018-10-08] MEDS ORDERED: BUTALB/APAP/CAFEIN 50/325/40MG TABLET. PO ONE (23:30)
[2018-10-08] MEDS ORDERED: ONDA4TAB7 PO (23:31)
[2018-10-08] MEDS ORDERED: BUTA1TAB23 PO (23:31)
--- NOTE | 2018-10-08 23:31 | PHYS DOC ---
Past Medical History Past Medical History: Migraines, Other Additional Past Medical Histor: LUPUS Past Surgical History: Other Additional Past Surgical Histo: GASTRIC SLEEVE IN 2012 Alcohol Use: None Drug Use: None Adult General Chief Complaint Chief Complaint: HEADACHE HPI HPI Patient is a 32 year old [f__sex] who presents with [] Review of Systems Review of Systems Constitutional: Denies fever or chills [] Eyes: Denies change in visual acuity, redness, or eye pain [] HENT: Denies nasal congestion or sore throat [] Respiratory: Denies cough or shortness of breath [] Cardiovascular: No additional information not addressed in HPI [] GI: Denies abdominal pain, nausea, vomiting, bloody stools or diarrhea [] : Denies dysuria or hematuria [] Musculoskeletal: Denies back pain or joint pain [] Integument: Denies rash or skin lesions [] Neurologic: Denies headache, focal weakness or sensory changes [] Endocrine: Denies polyuria or polydipsia [] All other systems were reviewed and found to be within normal limits, except as documented in this note. Current Medications Current Medications Current Medications Medications (Trade) Dose Ordered Sig/Jose Start Time Stop Time Status Last Admin Dose Admin Acetaminophen/ Butalbital/ Caffeine (Fioricet) 2 tab 1X ONCE 10/08/18 23:30 10/08/18 23:31 Dexamethasone Sodium Phosphate (Decadron) 10 mg 1X ONCE 10/08/18 22:00 10/08/18 22:01 DC 10/08/18 22:06 10 MG Ketorolac Tromethamine (Toradol 15mg Vial) 15 mg 1X ONCE 10/08/18 22:00 10/08/18 22:01 DC 10/08/18 22:05 15 MG Ondansetron HCl (Zofran) 4 mg 1X ONCE 10/08/18 22:00 10/08/18 22:01 DC 10/08/18 22:06 4 MG Sodium Chloride 1,000 ml @ 1,000 mls/hr 1X ONCE 10/08/18 22:00 10/08/18 22:59 DC 10/08/18 22:05 1,000 MLS/HR Allergies Allergies Allergies Coded Allergies Type Severity Reaction Last Updated Verified diphenhydramine Allergy Intermediate Rash 03/02/14 No gelatin Allergy Intermediate Rash 03/02/14 No tramadol Allergy Intermediate Rash 03/02/14 No Physical Exam Physical Exam Constitutional: Well developed, well nourished, no acute distress, non-toxic appearance. [] HENT: Normocephalic, atraumatic, bilateral external ears normal, oropharynx moist, no oral exudates, nose normal. [] Eyes: PERRLA, EOMI, conjunctiva normal, no discharge. [] Neck: Normal range of motion, no tenderness, supple, no stridor. [] Cardiovascular:Heart rate regular rhythm, no murmur [] Lungs & Thorax: Bilateral breath sounds clear to auscultation [] Abdomen: Bowel sounds normal, soft, no tenderness, no masses, no pulsatile masses. [] Skin: Warm, dry, no erythema, no rash. [] Back: No tenderness, no CVA tenderness. [] Extremities: No tenderness, no cyanosis, no clubbing, ROM intact, no edema. [] Neurologic: Alert and oriented X 3, normal motor function, normal sensory function, no focal deficits noted. [] Psychologic: Affect normal, judgement normal, mood normal. [] Current Patient Data Vital Signs Vital Signs Date Time Temp Pulse Resp B/P (MAP) Pulse Ox O2 Delivery O2 Flow Rate FiO2 10/08/18 21:30 82 98 10/08/18 20:50 97.7 18 138/88 (105) Room Air 97.7 Lab Values Laboratory Tests Test 10/08/18 21:25 10/08/18 21:37 White Blood Count 10.9 x10^3/uL (4.0-11.0) Red Blood Count 4.11 x10^6/uL (3.50-5.40) Hemoglobin 13.3 g/dL (12.0-15.5) Hematocrit 39.2 % (36.0-47.0) Mean Corpuscular Volume 95 fL (79-100) Mean Corpuscular Hemoglobin 32 pg (25-35) Mean Corpuscular Hemoglobin Concent 34 g/dL (31-37) Red Cell Distribution Width 12.3 % (11.5-14.5) Platelet Count 168 x10^3/uL (140-400) Neutrophils (%) (Auto) 66 % (31-73) Lymphocytes (%) (Auto) 27 % (24-48) Monocytes (%) (Auto) 5 % (0-9) Eosinophils (%) (Auto) 2 % (0-3) Basophils (%) (Auto) 0 % (0-3) Neutrophils # (Auto) 7.2 x10^3/uL (1.8-7.7) Lymphocytes # (Auto) 2.9 x10^3/uL (1.0-4.8) Monocytes # (Auto) 0.6 x10^3/uL (0.0-1.1) Eosinophils # (Auto) 0.2 x10^3/uL (0.0-0.7) Basophils # (Auto) 0.0 x10^3/uL (0.0-0.2) Erythrocyte Sedimentation Rate 3 (0-25) Sodium Level 141 mmol/L (136-145) Potassium Level 3.4 mmol/L (3.5-5.1) L Chloride Level 103 mmol/L (98-107) Carbon Dioxide Level 26 mmol/L (21-32) Anion Gap 12 (6-14) Blood Urea Nitrogen 13 mg/dL (7-20) Creatinine 0.7 mg/dL (0.6-1.0) Estimated GFR (Cockcroft-Gault) 97.6 BUN/Creatinine Ratio 19 (6-20) Glucose Level 102 mg/dL (70-99) H Calcium Level 8.9 mg/dL (8.5-10.1) Magnesium Level 2.0 mg/dL (1.8-2.4) Total Bilirubin 0.3 mg/dL (0.2-1.0) Aspartate Amino Transferase (AST) 15 U/L (15-37) Alanine Aminotransferase (ALT) 20 U/L (14-59) Alkaline Phosphatase 63 U/L (46-116) C-Reactive Protein, Quantitative 1.0 mg/L (0-3.3) Total Protein 7.7 g/dL (6.4-8.2) Albumin 4.1 g/dL (3.4-5.0) Albumin/Globulin Ratio 1.1 (1.0-1.7) POC Urine HCG, Qualitative Hcg negative (Negative) Laboratory Tests 10/08/18 21:25 Laboratory Tests 10/08/18 21:25 EKG EKG [] Radiology/Procedures Radiology/Procedures [] Course & Med Decision Making Course & Med Decision Making Pertinent Labs and Imaging studies reviewed. (See chart for details) [] Dragon Disclaimer Dragon Disclaimer This electronic medical record was generated, in whole or in part, using a voice recognition dictation system. Departure Departure Impression: Primary Impression: Headache Disposition: 01 HOME, SELF-CARE Condition: STABLE Referrals: NO PCP (PCP) TANI CASTELAN MD Patient Instructions: Headache, FAQs Scripts Ondansetron Hcl (ZOFRAN) 4 Mg Tablet 1 TAB PO Q8HRS PRN for NAUSEA, #20 TAB Prov: SONIDO ALVAREZ DO 10/08/18 Butalb/Acetaminophen/Caffeine ([id number] 50-325-40) 1 Each Tablet 1 EACH PO Q6HRS PRN for HEADACHE, #14 TAB Prov: SONIDO ALVAREZ DO 10/08/18 Problem Qualifiers Primary Impression: Headache Headache type: unspecified Headache chronicity pattern: acute headache Intractability: intractable Qualified Codes: R51 - Headache SONIDO ALVAREZ DO Oct 08, 2018 23:31
== END 2018-10-08 23:39 | disposition home or self-care (01) ==
LOC: ER 20:48
DX: G43.909 Migraine, unspecified, not intractable, without status migrainosus (principal); Z88.8 Allergy status to other drugs, medicaments and biological substances; Z88.5 Allergy status to narcotic agent; Z91.09 Other allergy status, other than to drugs and biological substances
CPT/HCPCS: 36415; 80053; 81025; 83735; 85025; 85651; 86140; 96374; 96375; 99284; J1100; J1885; J2405; J7030

== ENCOUNTER 2018-10-27 07:43 | Emergency (ER) | payer SELFPAY ==
[~2018-10-27] VITALS: Ht 170.2 cm; Wt 108.9 kg
[~2018-10-27 07:43] MED LIST changes: +BUTA1TAB23 PO; +ONDA4TAB7 PO
[2018-10-27 07:45] VITALS: BP 138/89
[2018-10-27] MEDS ORDERED: HYDROcodone/APAP 5/325MG 1 TAB TABLET PO ONE (08:15)
[2018-10-27] MEDS ORDERED: ONDANSETRON ODT 4 MG TAB.RAPDIS. PO ONE (08:15)
[2018-10-27 08:22] LABS: BILIRUBIN,URINE NEGATIVE (NEG); CLARITY,URINE CLEAR; COLOR,URINE YELLOW; NITRITE,URINE NEGATIVE (NEG); PROTEIN,URINE 30 mg/dL (NEG-TRACE); UROBILINOGEN,URINE 0.2 mg/dL (0.2 mg/dL)
[2018-10-27 08:50] LABS: RBC,URINE FOBS /HPF (0-2)
[2018-10-27 08:51] LABS: WBC,URINE TNTC /HPF (0-4)
[2018-10-27 08:52] LABS: BACTERIA,URINE MODERATE /HPF (0-FEW); SQUAMOUS EPITHELIAL CELL,UR FEW /LPF
[2018-10-27] MEDS ORDERED: oxyCODONE/APAP 5/325 1 TAB TABLET PO ONE (09:00)
[2018-10-27] MEDS ORDERED: cefTRIAXone IM 1 GM VIAL IM ONE (09:15)
--- NOTE | 2018-10-27 09:33 | RAD ---
Study: CT abdomen and pelvis without contrast Indication: Right flank pain. Comparison: Most recently on 03/03/2018 Technique: Helical CT imaging performed of the abdomen and pelvis without the use of intravenous contrast. Sagittal and coronal reformats were obtained. Findings: Right lower lobe calcified granuloma. No nephrolithiasis seen within the right kidney, throughout the right ureter or within the urinary bladder. No nephrolithiasis seen on the left. Trace nonspecific asymmetric prominence of the right renal pelvis relative to the left. No hydronephrosis or hydroureter bilaterally. No significant perinephric fat stranding. The liver is unremarkable. The gallbladder is contracted around numerous gallstones. The pancreas, spleen and adrenal glands are unremarkable. Status post bariatric surgery with unchanged configuration of the surgically altered stomach. Nonobstructed small bowel and colon. The appendix is normal. Partially collapsed urinary bladder which exhibits a mildly thickened wall. Within normal limits appearance of the uterus. There may be a very small ovarian cyst on the left. The right adnexal region is unremarkable. Trace fluid within the pelvis. No free air. No lymphadenopathy. Unremarkable body wall soft tissues. No acute osseous abnormality. Redemonstrated chronic pars defects bilaterally at L5 without spondylolisthesis. Impression: 1. No hydronephrosis or hydroureter seen bilaterally, nor renal calculus. There appears to be trace asymmetric prominence of the right renal pelvis on the right and the urinary bladder is mildly thick walled however this could be related to partial collapse. Recommend correlation with urinalysis to exclude an underlying urinary tract infection. 2. Contracted gallbladder around numerous gallstones. No CT findings to suggest acute cholecystitis. 3. Chronic bilateral pars defects at L5 without spondylolisthesis. Electronically signed by: STEPHANIE COONEY MD (10/27/2018 9:30 AM) [facility]
[2018-10-27] MEDS ORDERED: HYDR-3164 PO (09:49)
[2018-10-27] MEDS ORDERED: CIPR250T30 PO (09:49)
--- NOTE | 2018-10-27 09:49 | PHYS DOC ---
Past Medical History Past Medical History: Migraines, Other Additional Past Medical Histor: LUPUS Past Surgical History: Other Additional Past Surgical Histo: GASTRIC SLEEVE IN 2012 Alcohol Use: None Drug Use: None Adult General Chief Complaint Chief Complaint: BACK PAIN - NO INJURY HPI HPI Patient is a 32 year old female who presents with complaining of back pain. Patient complaining of right flank pain with radiation to the suprapubic area for the last 3-4 days a constant pain that gradually getting worse. Patient complaining of nausea and urinary frequency and states she had 4 episodes of vomiting since last night. Patient denies dysuria, hematuria, fever and chills, history of kidney stone or the same pain. Review of Systems Review of Systems Constitutional: Denies fever or chills [] Eyes: Denies change in visual acuity, redness, or eye pain [] HENT: Denies nasal congestion or sore throat [] Respiratory: Denies cough or shortness of breath [] Cardiovascular: No additional information not addressed in HPI [] GI: Reports abdominal pain, nausea, vomiting, denies bloody stools or diarrhea [] : Denies dysuria or hematuria [] Musculoskeletal: Denies back pain or joint pain [] Integument: Denies rash or skin lesions [] Neurologic: Denies headache, focal weakness or sensory changes [] Endocrine: Denies polyuria or polydipsia [] All other systems were reviewed and found to be within normal limits, except as documented in this note. Current Medications Current Medications Current Medications Medications (Trade) Dose Ordered Sig/Jose Start Time Stop Time Status Last Admin Dose Admin Acetaminophen/ Hydrocodone Bitart (Lortab 5/325) 1 tab 1X ONCE 10/27/18 08:15 10/27/18 08:16 DC 10/27/18 08:16 1 TAB Ceftriaxone Sodium (Rocephin Im) 1 gm 1X ONCE 10/27/18 09:15 10/27/18 09:16 DC 10/27/18 09:17 1 GM Ondansetron HCl (Zofran Odt) 4 mg 1X ONCE 10/27/18 08:15 10/27/18 08:16 DC 10/27/18 08:16 4 MG Oxycodone/ Acetaminophen (Percocet 5/325) 1 tab 1X ONCE 10/27/18 09:00 10/27/18 09:01 DC 10/27/18 09:17 1 TAB Allergies Allergies Allergies Coded Allergies Type Severity Reaction Last Updated Verified diphenhydramine Allergy Intermediate Rash 03/02/14 No gelatin Allergy Intermediate Rash 03/02/14 No tramadol Allergy Intermediate Rash 10/27/18 No Physical Exam Physical Exam Constitutional: Well developed, well nourished, mild distress, non-toxic appearance. [] HENT: Normocephalic, atraumatic. Eyes: PERRLA, EOMI, conjunctiva normal, no discharge. [] Neck: Normal range of motion, no tenderness, supple, no stridor. [] Cardiovascular:Heart rate regular rhythm, no murmur [] Lungs & Thorax: Bilateral breath sounds clear to auscultation [] Abdomen: Bowel sounds normal, soft, no tenderness, no masses, no pulsatile masses. [] Skin: Warm, dry, no erythema, no rash. [] Back: No tenderness, no CVA tenderness. [] Extremities: No tenderness, no cyanosis, no clubbing, ROM intact, no edema. [] Neurologic: Alert and oriented X 3, no focal deficits noted. [] Psychologic: Affect anxious, judgement normal, mood normal. [] Current Patient Data Vital Signs Vital Signs Date Time Temp Pulse Resp B/P (MAP) Pulse Ox O2 Delivery O2 Flow Rate FiO2 10/27/18 09:17 18 Room Air 10/27/18 07:45 97.9 70 138/89 (105) 100 97.9 Lab Values Laboratory Tests Test 10/27/18 07:50 10/27/18 08:03 Urine Collection Type Unknown Urine Color Yellow Urine Clarity Clear Urine pH 6.0 Urine Specific [place] 1.015 Urine Protein 30 mg/dL (NEG-TRACE) Urine Glucose (UA) Negative mg/dL (NEG) Urine Ketones (Stick) Negative mg/dL (NEG) Urine Blood Small (NEG) Urine Nitrite Negative (NEG) Urine Bilirubin Negative (NEG) Urine Urobilinogen Dipstick 0.2 mg/dL (0.2 mg/dL) Urine Leukocyte Esterase Large (NEG) Urine RBC Fobs /HPF (0-2) Urine WBC Tntc /HPF (0-4) Urine Squamous Epithelial Cells Few /LPF Urine Bacteria Moderate /HPF (0-FEW) Urine Mucus Marked /LPF POC Urine HCG, Qualitative Hcg negative (Negative) EKG EKG [] Radiology/Procedures Radiology/Procedures [][facility] [address] [place] [address] IMAGING REPORT Signed PATIENT: RISHI ALAMO ACCOUNT: [id number] : 1985 LOCATION: ER AGE: 32 SEX: F EXAM STATUS: REG ER ORD. PHYSICIAN: FRANCO SANCHEZ MD REASON: right flank pain PROCEDURE: CT ABDOMEN PELVIS WO CONTRAST Study: CT abdomen and pelvis without contrast Indication: Right flank pain. Comparison: Most recently on 03/03/2018 Technique: Helical CT imaging performed of the abdomen and pelvis without the use of intravenous contrast. Sagittal and coronal reformats were obtained. Findings: Right lower lobe calcified granuloma. No nephrolithiasis seen within the right kidney, throughout the right ureter or within the urinary bladder. No nephrolithiasis seen on the left. Trace nonspecific asymmetric prominence of the right renal pelvis relative to the left. No hydronephrosis or hydroureter bilaterally. No significant perinephric fat stranding. The liver is unremarkable. The gallbladder is contracted around numerous gallstones. The pancreas, spleen and adrenal glands are unremarkable. Status post bariatric surgery with unchanged configuration of the surgically altered stomach. Nonobstructed small bowel and colon. The appendix is normal. Partially collapsed urinary bladder which exhibits a mildly thickened wall. Within normal limits appearance of the uterus. There may be a very small ovarian cyst on the left. The right adnexal region is unremarkable. Trace fluid within the pelvis. No free air. No lymphadenopathy. Unremarkable body wall soft tissues. No acute osseous abnormality. Redemonstrated chronic pars defects bilaterally at L5 without spondylolisthesis. Impression: 1. No hydronephrosis or hydroureter seen bilaterally, nor renal calculus. There appears to be trace asymmetric prominence of the right renal pelvis on the right and the urinary bladder is mildly thick walled however this could be related to partial collapse. Recommend correlation with urinalysis to exclude an underlying urinary tract infection. 2. Contracted gallbladder around numerous gallstones. No CT findings to suggest acute cholecystitis. 3. Chronic bilateral pars defects at L5 without spondylolisthesis. Electronically signed by: STEPHANIE COONEY MD (10/27/2018 9:30 AM) [facility] DICTATED and SIGNED BY: STEPHANIE COONEY MD DATE: 10/27/18929 Course & Med Decision Making Course & Med Decision Making Pertinent Labs and Imaging studies reviewed. (See chart for details) Evaluation of patient in ER showed 32-year-old female patient with complaining of right flank pain with radiation to the suprapubic area for the last 3 or 4 days with nausea and vomiting since last night. Patient did not have CVA tenderness or fever in ER. CT of abdomen and pelvis did not show denies stone. Patient treated with Zofran, [place], Percocet, Rocephin and felt better. Plan discharge patient home with diagnosis of UTI. CT showed cholelithiasis without acute cholecystitis and patient states she had diagnosis of cholelithiasis and was advised to avoid of eating greasy foods. Dragon Disclaimer Dragon Disclaimer This electronic medical record was generated, in whole or in part, using a voice recognition dictation system. Departure Departure Impression: Primary Impression: Urinary tract infection Additional Impressions: Nausea and vomiting Cholelithiasis Disposition: 01 HOME, SELF-CARE (at 0945) Condition: IMPROVED Referrals: NO PCP (PCP) Patient Instructions: Cholelithiasis, Nausea and Vomiting, Urinary Tract Infection Additional Instructions: Drink plenty of liquids Follow-up with your primary care physician in 3-5 days Return to ER if not getting better Do not eat solid foods today Scripts Hydrocodone/Apap 5-325 (NORCO 5-325 TABLET) 1 Each Tablet 1 TAB PO PRN Q6HRS PRN for PAIN, #10 TAB 0 Refills Prov: FRANCO SANCHEZ MD 10/27/18 Ciprofloxacin Hcl (CIPRO) 250 Mg Tablet 1 TAB PO BID for infection, #14 TAB Prov: FRANCO SANCHEZ MD 10/27/18 Problem Qualifiers Primary Impression: Urinary tract infection Urinary tract infection type: acute cystitis Hematuria presence: without hematuria Qualified Codes: N30.00 - Acute cystitis without hematuria Additional Impressions: Nausea and vomiting Vomiting type: unspecified Vomiting Intractability: non-intractable Qualified Codes: R11.2 - Nausea with vomiting, unspecified Cholelithiasis Cholelithiasis location: gallbladder Cholecystitis presence: without cholecystitis Biliary obstruction: without biliary obstruction Qualified Codes: K80.20 - Calculus of gallbladder without cholecystitis without obstruction FRANCO SANCHEZ MD Oct 27, 2018 09:49
== END 2018-10-27 09:56 | disposition home or self-care (01) ==
LOC: ER 07:43
DX: N30.00 Acute cystitis without hematuria (principal); R11.2 Nausea with vomiting, unspecified; K80.20 Calculus of gallbladder without cholecystitis without obstruction; G43.909 Migraine, unspecified, not intractable, without status migrainosus; Z88.8 Allergy status to other drugs, medicaments and biological substances; Z88.5 Allergy status to narcotic agent
CPT/HCPCS: 74176; 81001; 81025; 87086; 96372; 99285; J0696; Q0162

== ENCOUNTER 2018-12-01 18:58 | Emergency (ER) | payer SELFPAY ==
[~2018-12-01] VITALS: Ht 170.2 cm; Wt 108.9 kg
[~2018-12-01 18:58] MED LIST changes: +CIPR250T30 PO
--- NOTE | 2018-12-01 19:26 | PHYS DOC ---
Past Medical History Past Medical History: Migraines, Other Additional Past Medical Histor: LUPUS Past Surgical History: Other Additional Past Surgical Histo: GASTRIC SLEEVE IN 2012 Alcohol Use: None Drug Use: None Adult General Chief Complaint Chief Complaint: ABDOMINAL PAIN HPI HPI Patient is a 33 year old female with history of migraine headaches, gallstones, who presents to the ED today complaining of 10 out of 10 right upper quadrant abdominal pain radiating to the right flank region, pain began 4 days ago. Patient is also complaining of nausea and vomiting. She states she has history of gallstones and has been seen in the emergency room multiple times. She states she does not have any medical insurance and is not able to follow up for a general surgeon. Denies any exacerbating or relieving factors to her pain. Review of Systems Review of Systems Constitutional: Denies fever or chills [] Eyes: Denies change in visual acuity, redness, or eye pain [] HENT: Denies nasal congestion or sore throat [] Respiratory: Denies cough or shortness of breath [] Cardiovascular: No additional information not addressed in HPI [] GI: Reports right upper quadrant abdominal pain, nausea vomiting, denies bloody stools or diarrhea [] : Denies dysuria or hematuria [] Musculoskeletal: Denies back pain or joint pain [] Integument: Denies rash or skin lesions [] Neurologic: Denies headache, focal weakness or sensory changes [] All other systems were reviewed and found to be within normal limits, except as documented in this note. Current Medications Current Medications Current Medications Medications (Trade) Dose Ordered Sig/Jose Start Time Stop Time Status Last Admin Dose Admin Ceftriaxone Sodium (Rocephin) 1 gm 1X ONCE 12/01/18 22:30 12/01/18 22:31 DC 12/01/18 22:07 1 GM Famotidine (Pepcid Vial) 20 mg 1X ONCE 12/01/18 19:30 12/01/18 19:31 DC 12/01/18 19:41 20 MG Fentanyl Citrate (Fentanyl 2ml Vial) 50 mcg 1X ONCE 12/01/18 22:30 12/01/18 22:31 DC 12/01/18 22:07 50 MCG Ondansetron HCl (Zofran) 4 mg 1X ONCE 12/01/18 19:30 12/01/18 19:31 DC 12/01/18 19:41 4 MG Sodium Chloride 1,000 ml @ 1,000 mls/hr 1X ONCE 12/01/18 19:30 12/01/18 20:29 DC 12/01/18 19:41 1,000 MLS/HR Allergies Allergies Allergies Coded Allergies Type Severity Reaction Last Updated Verified diphenhydramine Allergy Intermediate Rash 03/02/14 No gelatin Allergy Intermediate Rash 03/02/14 No tramadol Allergy Intermediate Rash 10/27/18 No Physical Exam Physical Exam Constitutional: Well developed, well nourished, no acute distress, non-toxic appearance. [] HENT: Normocephalic, atraumatic, bilateral external ears normal, oropharynx moist, no oral exudates, nose normal. [] Eyes: PERRLA, EOMI, conjunctiva normal, no discharge. [] Neck: Normal range of motion, no tenderness, supple, no stridor. [] Cardiovascular:Heart rate regular rhythm, no murmur [] Lungs & Thorax: Bilateral breath sounds clear to auscultation [] Abdomen: Bowel sounds normal, soft, tenderness the right upper quadrant with negative Kaiser sign, no right lower quadrant tenderness, negative psoas sign, negative obturator sign no guarding,, no masses, no pulsatile masses. [] Skin: Warm, dry, no erythema, no rash. [] Back: No tenderness, no CVA tenderness. [] Extremities: No tenderness, no cyanosis, no clubbing, ROM intact, no edema. [] Neurologic: Alert and oriented X 3, normal motor function, normal sensory function, no focal deficits noted. [] Psychologic: Affect normal, judgement normal, mood normal. [] Current Patient Data Vital Signs Vital Signs Date Time Temp Pulse Resp B/P (MAP) Pulse Ox O2 Delivery O2 Flow Rate FiO2 12/01/18 22:20 70 18 111/72 (85) 97 Room Air 12/01/18 19:05 97.9 97.9 Lab Values Laboratory Tests Test 12/01/18 19:33 12/01/18 19:35 12/01/18 19:42 Urine Collection Type Unknown Urine Color Yellow Urine Clarity Cloudy Urine pH 6.5 Urine Specific [place] 1.025 Urine Protein Negative mg/dL (NEG-TRACE) Urine Glucose (UA) Negative mg/dL (NEG) Urine Ketones (Stick) Negative mg/dL (NEG) Urine Blood Negative (NEG) Urine Nitrite Negative (NEG) Urine Bilirubin Negative (NEG) Urine Urobilinogen Dipstick 1.0 mg/dL (0.2 mg/dL) Urine Leukocyte Esterase Large (NEG) Urine RBC 0 /HPF (0-2) Urine WBC 20-40 /HPF (0-4) Urine Squamous Epithelial Cells Many /LPF Urine Bacteria Mod /HPF (0-FEW) Urine Mucus Marked /LPF Urine Opiates Screen Neg (NEG) Urine Methadone Screen Neg (NEG) Urine Barbiturates Neg (NEG) Urine Phencyclidine Screen Neg (NEG) Urine Amphetamine/Methamphetamine Neg (NEG) Urine Benzodiazepines Screen Pos (NEG) Urine Cocaine Screen Neg (NEG) Urine Cannabinoids Screen Pos (NEG) Urine Ethyl Alcohol Neg (NEG) White Blood Count 7.7 x10^3/uL (4.0-11.0) Red Blood Count 3.81 x10^6/uL (3.50-5.40) Hemoglobin 12.3 g/dL (12.0-15.5) Hematocrit 36.9 % (36.0-47.0) Mean Corpuscular Volume 97 fL (79-100) Mean Corpuscular Hemoglobin 32 pg (25-35) Mean Corpuscular Hemoglobin Concent 33 g/dL (31-37) Red Cell Distribution Width 12.4 % (11.5-14.5) Platelet Count 139 x10^3/uL (140-400) L Neutrophils (%) (Auto) 59 % (31-73) Lymphocytes (%) (Auto) 33 % (24-48) Monocytes (%) (Auto) 6 % (0-9) Eosinophils (%) (Auto) 2 % (0-3) Basophils (%) (Auto) 1 % (0-3) Neutrophils # (Auto) 4.5 x10^3/uL (1.8-7.7) Lymphocytes # (Auto) 2.5 x10^3/uL (1.0-4.8) Monocytes # (Auto) 0.5 x10^3/uL (0.0-1.1) Eosinophils # (Auto) 0.1 x10^3/uL (0.0-0.7) Basophils # (Auto) 0.1 x10^3/uL (0.0-0.2) Sodium Level 140 mmol/L (136-145) Potassium Level 3.7 mmol/L (3.5-5.1) Chloride Level 105 mmol/L (98-107) Carbon Dioxide Level 27 mmol/L (21-32) Anion Gap 8 (6-14) Blood Urea Nitrogen 16 mg/dL (7-20) Creatinine 0.8 mg/dL (0.6-1.0) Estimated GFR (Cockcroft-Gault) 83.1 BUN/Creatinine Ratio 20 (6-20) Glucose Level 104 mg/dL (70-99) H Calcium Level 8.2 mg/dL (8.5-10.1) L Total Bilirubin 0.9 mg/dL (0.2-1.0) Aspartate Amino Transferase (AST) 326 U/L (15-37) H Alanine Aminotransferase (ALT) 352 U/L (14-59) H Alkaline Phosphatase 88 U/L (46-116) Total Protein 7.0 g/dL (6.4-8.2) Albumin 3.6 g/dL (3.4-5.0) Albumin/Globulin Ratio 1.1 (1.0-1.7) Lipase 153 U/L (73-393) Ethyl Alcohol Level < 10 mg/dL (0-10) POC Urine HCG, Qualitative Hcg negative (Negative) Laboratory Tests 12/01/18 19:35 Laboratory Tests 12/01/18 19:35 EKG EKG [] Radiology/Procedures Radiology/Procedures []PROCEDURE: ABDOMEN LTD Ultrasound of the right upper quadrant abdomen 12/01/2018 MEDICAL HISTORY: Right upper quadrant abdominal pain. TECHNIQUE: A real-time ultrasound examination of the right upper quadrant abdomen was performed. Multiple images were obtained. FINDINGS: Comparison is made to a CT scan of the abdomen dated 10/27/2018. Echogenic gallstones are seen within the gallbladder which is slightly contracted. The gallbladder wall thickness is within normal limits. No pericholecystic fluid is seen. The common bile duct measures 4 mm in diameter which is within normal limits. The liver is normal in size measuring 16 cm in length. Increased echogenicity of the liver parenchyma is seen consistent with fatty infiltration. The visualized portions of pancreas and right kidney are within normal limits. No free fluid is seen. IMPRESSION: 1. Cholelithiasis. 2. Fatty infiltration of the liver. Electronically signed by: Nirav Liang MD (12/01/2018 9:28 PM) [facility] DICTATED and SIGNED BY: NIRAV LIANG MD DATE: 12/01/182127 Course & Med Decision Making Course & Med Decision Making Pertinent Labs and Imaging studies reviewed. (See chart for details) This is a 33-year-old female patient presenting to the ED today with complaints of right upper quadrant abdominal pain with nausea and vomiting that began 4 days ago that she reports she has history of gallstones. CBC with a normal WBC, CMP with AST of 326, ALT 352, lipase is normal. Urine analysis is noted for UTI. Right upper quadrant limited ultrasound noted for cholelithiasis no cholecystitis. Results were communicated to patient, she states her pain is well controlled right now, she states she prefers not to be admitted because she has to go to work tomorrow and she does not want to miss work. I provided her a general surgeon for follow-up as an outpatient. She was given Rocephin IV in the ED for UTI and discharged on cephalexin. Given prescription for pain medicine. Dragon Disclaimer Dragon Disclaimer This electronic medical record was generated, in whole or in part, using a voice recognition dictation system. Departure Departure Impression: Primary Impression: Gall stone Additional Impression: Urinary tract infection Disposition: 01 HOME, SELF-CARE Condition: STABLE Referrals: NO PCP (PCP) BRITANY WRAY MD follow up as soon as possible Patient Instructions: Cholelithiasis Additional Instructions: You were evaluated in the emergency room and noted to have gallstones. Please follow-up with the general surgeon provided as soon as you can. You also have urinary tract infection, we put you on antibiotics, ensure you complete them. Scripts Hydrocodone/Apap 5-325 (NORCO 5-325 TABLET) 1 Each Tablet 1-2 TAB PO Q6HRS PRN for PAIN MDD 8, #30 TAB Prov: MUTUNGA,DANA PLUMBER GASFITTER 12/01/18 Cephalexin (CEPHALEXIN) 500 Mg Tablet 1 TAB PO BID, #14 TAB Prov: MUTUNGA,DANA PLUMBER GASFITTER 12/01/18 Problem Qualifiers Primary Impression: Gall stone Cholecystitis presence: without cholecystitis Biliary obstruction: without biliary obstruction Qualified Codes: K80.20 - Calculus of gallbladder without cholecystitis without obstruction Additional Impression: Urinary tract infection Urinary tract infection type: site unspecified Hematuria presence: without hematuria Qualified Codes: N39.0 - Urinary tract infection, site not specified DANA BILLINGSLEY APRN Dec 01, 2018 19:26
[2018-12-01] MEDS ORDERED: fentaNYL PF VIAL 100 MCG/2 ML VIAL IVP ONE ×3 (19:30→22:30)
[2018-12-01] MEDS ORDERED: FAMOTIDINE 20 MG/2 ML VIAL IVP ONE (19:30)
[2018-12-01] MEDS ORDERED: ONDANSETRON PF 4 MG/2 ML VIAL. IV ONE (19:30)
[2018-12-01] MEDS ORDERED: IV NORMAL SALINE 1000ML BAG 1,000 ML IV ONE (19:30)
[2018-12-01 19:45] LABS: BILIRUBIN,URINE NEGATIVE (NEG); CLARITY,URINE CLOUDY; COLOR,URINE YELLOW; NITRITE,URINE NEGATIVE (NEG); PH,URINE 6.5; PROTEIN,URINE NEGATIVE (NEG-TRACE)
[2018-12-01 19:53] LABS: SQUAMOUS EPITHELIAL CELL,UR MANY /LPF
[2018-12-01 19:54] LABS: BACTERIA,URINE MOD /HPF (0-FEW); RBC,URINE 0 /HPF (0-2); WBC,URINE 20-40 /HPF (0-4)
[2018-12-01 19:54] LABS: BASO # 0.1 x10^3/uL (0.0-0.2); BASO % 1 % (0-3); EOS # 0.1 x10^3/uL (0.0-0.7); EOS % 2 % (0-3); HEMATOCRIT 36.9 % (36.0-47.0); HEMOGLOBIN 12.3 g/dL (12.0-15.5); LYMPH # 2.5 x10^3/uL (1.0-4.8); LYMPH % 33 % (24-48); MEAN CORPUSCULAR HEMOGLOBIN 32 pg (25-35); MEAN CORPUSCULAR HGB CONC 33 g/dL (31-37); MEAN CORPUSCULAR VOLUME 97 fL (79-100); MONO # 0.5 x10^3/uL (0.0-1.1); MONO % 6 % (0-9); NEUT # 4.5 x10^3/uL (1.8-7.7); NEUT % 59 % (31-73); PLATELET COUNT 139 x10^3/uL (140-400); RED BLOOD COUNT 3.81 x10^6/uL (3.50-5.40); RED CELL DISTRIBUTION WIDTH 12.4 % (11.5-14.5); WHITE BLOOD COUNT 7.7 x10^3/uL (4.0-11.0)
[2018-12-01 20:00] LABS: CALCIUM 8.2 mg/dL (8.5-10.1); CREATININE 0.8 mg/dL (0.6-1.0); GFR 83.1; POTASSIUM 3.7 mmol/L (3.5-5.1)
[2018-12-01 20:07] LABS: BARBITURATES NEG (NEG); BENZODIAZEPINES POS (NEG); CANNABINOIDS POS (NEG); COCAINE NEG (NEG); METHADONE NEG (NEG); OPIATES NEG (NEG); PHENCYCLIDINE NEG (NEG)
[2018-12-01 20:08] LABS: AMPHETAMINE/METHAMPHETAMINE NEG (NEG)
[2018-12-01 20:20] LABS: TOTAL BILIRUBIN 0.9 mg/dL (0.2-1.0)
[2018-12-01 20:21] LABS: ALBUMIN 3.6 g/dL (3.4-5.0); ALBUMIN/GLOBULIN RATIO 1.1 (1.0-1.7)
--- NOTE | 2018-12-01 21:30 | RAD ---
Ultrasound of the right upper quadrant abdomen 12/01/2018 MEDICAL HISTORY: Right upper quadrant abdominal pain. TECHNIQUE: A real-time ultrasound examination of the right upper quadrant abdomen was performed. Multiple images were obtained. FINDINGS: Comparison is made to a CT scan of the abdomen dated 10/27/2018. Echogenic gallstones are seen within the gallbladder which is slightly contracted. The gallbladder wall thickness is within normal limits. No pericholecystic fluid is seen. The common bile duct measures 4 mm in diameter which is within normal limits. The liver is normal in size measuring 16 cm in length. Increased echogenicity of the liver parenchyma is seen consistent with fatty infiltration. The visualized portions of pancreas and right kidney are within normal limits. No free fluid is seen. IMPRESSION: 1. Cholelithiasis. 2. Fatty infiltration of the liver. Electronically signed by: Nirav Liang MD (12/01/2018 9:28 PM) [facility]
[2018-12-01] MEDS ORDERED: HYDR-3164 PO (21:54)
[2018-12-01] MEDS ORDERED: CEPH500T PO (21:54)
[2018-12-01 22:20] VITALS: BP 111/72
[2018-12-01] MEDS ORDERED: cefTRIAXone IV Push 1 GM VIAL. IVP ONE (22:30)
== END 2018-12-01 22:30 | disposition home or self-care (01) ==
LOC: ER 18:58
DX: K80.20 Calculus of gallbladder without cholecystitis without obstruction (principal); N39.0 Urinary tract infection, site not specified; G43.909 Migraine, unspecified, not intractable, without status migrainosus; R11.2 Nausea with vomiting, unspecified; Z88.8 Allergy status to other drugs, medicaments and biological substances; Z88.5 Allergy status to narcotic agent
CPT/HCPCS: 36415; 76705; 80053; 80307; 81001; 81025; 83690; 85025; 96361; 96374; 96375; 96376; 99285; G0480; J0696; J2405; J3010; J3490; J7030

== ENCOUNTER 2019-07-09 10:41 | Emergency (ER) | payer SELFPAY ==
[~2019-07-09] VITALS: Ht 170.2 cm; Wt 110.0 kg
[2019-07-09] MEDS ORDERED: IV NORMAL SALINE 1000ML BAG 1,000 ML IV ONE ×2 (11:00→14:00)
[2019-07-09 11:41] LABS: BASO # 0.1 x10^3/uL (0.0-0.2); BASO % 1 % (0-3); EOS % 0 % (0-3); HEMATOCRIT 38.9 % (36.0-47.0); HEMOGLOBIN 13.6 g/dL (12.0-15.5); LYMPH % 19 % (24-48); MEAN CORPUSCULAR HEMOGLOBIN 34 pg (25-35); MEAN CORPUSCULAR HGB CONC 35 g/dL (31-37); MEAN CORPUSCULAR VOLUME 96 fL (79-100); MONO # 0.5 x10^3/uL (0.0-1.1); MONO % 4 % (0-9); NEUT # 8.2 x10^3/uL (1.8-7.7); NEUT % 76 % (31-73); PLATELET COUNT 204 x10^3/uL (140-400); RED BLOOD COUNT 4.04 x10^6/uL (3.50-5.40); RED CELL DISTRIBUTION WIDTH 12.5 % (11.5-14.5); WHITE BLOOD COUNT 10.7 x10^3/uL (4.0-11.0)
[2019-07-09 11:48] LABS: CREATININE 0.8 mg/dL (0.6-1.0); GFR 83.1; POTASSIUM 3.5 mmol/L (3.5-5.1)
[2019-07-09 11:55] LABS: ALBUMIN 3.9 g/dL (3.4-5.0); TOTAL BILIRUBIN 0.4 mg/dL (0.2-1.0); TOTAL PROTEIN 7.7 g/dL (6.4-8.2)
--- NOTE | 2019-07-09 12:48 | RAD ---
OB <14 WKS W/TV History: Reason: MISCARRIAGE / Spl. Instructions: / History: Comparison: None. Technique: Grayscale and color Doppler imaging of the pelvis was performed using transabdominal technique. Findings: The uterus measures 10.0 x 7.1 x 6.5 cm. Cervical length 4 cm. Single intrauterine oblong gestational sac. Yolk sac and pole is identified. [place]-rump length 2.2 cm. Estimated gestational age by ultrasound 8 weeks 6 days. No activity is identified. Small subchorionic hematoma. Right ovary measures 1.6 x 1.3 x 1.6 cm. Left ovary measures 1.8 x 1.5 x 1.2 cm. No adnexal masses are seen. IMPRESSION: 1. Intrauterine with gestational age 8 weeks 6 days without cardiac activity, compatible with demise. 2. Small subchorionic hematoma. Electronically signed by: Herman Jordan DO (07/09/2019 12:45 PM) [id number]
--- NOTE | 2019-07-09 13:08 | PHYS DOC ---
Past Medical History Past Medical History: Migraines, Other Additional Past Medical Histor: Lupus, Gall stones Past Surgical History: Other Additional Past Surgical Histo: Gastric sleeve Smoking Status: Never Smoker Alcohol Use: None Drug Use: None General Adult EDM: Chief Complaint: VOMITING IN HPI: HPI: Patient is a 33 year old female presenting to the ED with a chief complaint of nausea and vomiting. Patient states that she is G2, P1 and is about 6 or 7 weeks . Patient states that she was seen at [facility] she performed an ultrasound on her and told her to go to the hospital. Patient states that she thinks today and so did not come to the hospital. Patient states that this happened 4 days ago. Patient states that today she has a headache and is not able to hold anything down and so she came into the ER. Dany farrar denies vaginal bleeding, vaginal spotting, vaginal discharge. Patient also denies abdominal pain, dysuria. Review of Systems: Review of Systems: Constitutional: Denies fever or chills. [] Eyes: Denies change in visual acuity. [] HENT: Denies nasal congestion or sore throat. [] Respiratory: Denies cough or shortness of breath. [] Cardiovascular: Denies chest pain or edema. [] GI: Denies abdominal pain. Patient complains of nausea and vomiting : Denies dysuria. [] Neurologic: Complains of headache Heart Score: Risk Factors: Risk Factors: DM, Current or recent (<one month) smoker, HTN, HLP, family history of CAD, obesity. Risk Scores: Score 0 - 3: 2.5% MACE over next 6 weeks - Discharge Home Score 4 - 6: 20.3% MACE over next 6 weeks - Admit for Clinical Observation Score 7 - 10: 72.7% MACE over next 6 weeks - Early Invasive Strategies Current Medications: Current Medications Medications (Trade) Dose Ordered Sig/Jose Start Time Stop Time Status Last Admin Dose Admin Sodium Chloride 1,000 ml @ 1,000 mls/hr 1X ONCE 07/09/19 11:00 07/09/19 11:59 DC 07/09/19 11:30 1,000 MLS/HR Allergies: Allergies: Allergies Coded Allergies Type Severity Reaction Last Updated Verified diphenhydramine Allergy Intermediate Rash 03/02/14 No gelatin Allergy Intermediate Rash 03/02/14 No tramadol Allergy Intermediate Rash 10/27/18 No Physical Exam: PE: Constitutional: Well developed, well nourished, no acute distress, non-toxic appearance. [] HENT: Normocephalic, atraumatic Eyes: EOMI Neck: Normal range of motion, Supple Cardiovascular:Heart rate regular rhythm Lungs & Thorax: Bilateral breath sounds clear to auscultation [] Abdomen: Bowel sounds normal, soft, no tenderness Extremities: No tenderness, ROM intact Neurologic: Alert and oriented X 3 Current Patient Data: Labs: Laboratory Tests Test 07/09/19 11:30 07/09/19 12:55 White Blood Count 10.7 x10^3/uL (4.0-11.0) Red Blood Count 4.04 x10^6/uL (3.50-5.40) Hemoglobin 13.6 g/dL (12.0-15.5) Hematocrit 38.9 % (36.0-47.0) Mean Corpuscular Volume 96 fL (79-100) Mean Corpuscular Hemoglobin 34 pg (25-35) Mean Corpuscular Hemoglobin Concent 35 g/dL (31-37) Red Cell Distribution Width 12.5 % (11.5-14.5) Platelet Count 204 x10^3/uL (140-400) Neutrophils (%) (Auto) 76 % (31-73) H Lymphocytes (%) (Auto) 19 % (24-48) L Monocytes (%) (Auto) 4 % (0-9) Eosinophils (%) (Auto) 0 % (0-3) Basophils (%) (Auto) 1 % (0-3) Neutrophils # (Auto) 8.2 x10^3/uL (1.8-7.7) H Lymphocytes # (Auto) 2.0 x10^3/uL (1.0-4.8) Monocytes # (Auto) 0.5 x10^3/uL (0.0-1.1) Eosinophils # (Auto) 0.0 x10^3/uL (0.0-0.7) Basophils # (Auto) 0.1 x10^3/uL (0.0-0.2) Maternal Serum HCG Beta Subunit 66103 mIU/mL (0-5) H Sodium Level 140 mmol/L (136-145) Potassium Level 3.5 mmol/L (3.5-5.1) Chloride Level 103 mmol/L (98-107) Carbon Dioxide Level 24 mmol/L (21-32) Anion Gap 13 (6-14) Blood Urea Nitrogen 8 mg/dL (7-20) Creatinine 0.8 mg/dL (0.6-1.0) Estimated GFR (Cockcroft-Gault) 83.1 BUN/Creatinine Ratio 10 (6-20) Glucose Level 104 mg/dL (70-99) H Calcium Level 9.0 mg/dL (8.5-10.1) Total Bilirubin 0.4 mg/dL (0.2-1.0) Aspartate Amino Transferase (AST) 11 U/L (15-37) L Alanine Aminotransferase (ALT) 16 U/L (14-59) Alkaline Phosphatase 58 U/L (46-116) Total Protein 7.7 g/dL (6.4-8.2) Albumin 3.9 g/dL (3.4-5.0) Albumin/Globulin Ratio 1.0 (1.0-1.7) Lipase 155 U/L (73-393) POC Urine HCG, Qualitative Hcg positive (Negative) Laboratory Tests 07/09/19 11:30 Laboratory Tests 07/09/19 11:30 Vital Signs: Vital Signs Date Time Temp Pulse Resp B/P (MAP) Pulse Ox O2 Delivery O2 Flow Rate FiO2 07/09/19 10:50 97.9 90 16 158/97 (117) 100 Room Air 97.9 EKG: EKG: [] Radiology/Procedures: Radiology/Procedures: [] Impression: US IMPRESSION: 1. Intrauterine with gestational age 8 weeks 6 days without cardiac activity, compatible with demise. 2. Small subchorionic hematoma. Course & Med Decision Making: Course & Med Decision Making Pertinent Labs and Imaging studies reviewed. (See chart for details) Ordered labs, UA, hCG level, ultrasound of the pelvis, IV fluids, IV Zofran Ultrasound shows intrauterine gestation of 8 weeks and 6 days. There is no cardiac activity seen. Beta-hCG level is 13,476. UA is positive for trichomoniasis. I ordered a second liter of IV fluids for the patient. Also ordered Flagyl in the ER. Discussed results and plan of care with patient. I also discussed case with Dr. Goodman from [facility] who states that she will see patient tomorrow as an outpatient in her office. Discussed results and plan of care with patient. Patient is instructed to follow up with PCP in one to 2 days. Appropriate discharge instructions given to patient to return to the ED or to seek immediate medical evaluation. Patient is instructed to return to the ED if symptoms worsen or if any concerns. Lanie Disclaimer: Lanie Disclaimer: This electronic medical record was generated, in whole or in part, using a voice recognition dictation system. Departure Departure Impression: Primary Impression: Miscarriage Additional Impression: Trichomonal vaginitis Disposition: HOME, SELF-CARE Condition: GUARDED Referrals: NO PCP (PCP) JUJU CAIN MD Please call office Wednesday, July 10, 2019 Patient Instructions: Incomplete Miscarriage, Threatened Miscarriage, Trichomoniasis Additional Instructions: Please follow-up with [facility] tomorrow. Please return to the ED if symptoms worsen or if any concerns. Scripts Ondansetron Hcl (ZOFRAN) 4 Mg Tablet 4 MG PO PRN TID PRN for NAUSEA for 5 Days, #15 nausea/vomiting Prov: VILLA ORTIZ DO 07/09/19 Metronidazole (FLAGYL) 500 Mg Tablet 500 MG PO TID for 7 Days, #21 TAB Prov: VILLA ORTIZ DO 07/09/19 VILLA ORTIZ DO July 09, 2019 13:08
[2019-07-09 13:11] LABS: BILIRUBIN,URINE NEGATIVE (NEG); CLARITY,URINE CLEAR; COLOR,URINE YELLOW; NITRITE,URINE NEGATIVE (NEG); PROTEIN,URINE NEGATIVE (NEG-TRACE); UROBILINOGEN,URINE 0.2 mg/dL (0.2 mg/dL)
[2019-07-09 13:22] LABS: SQUAMOUS EPITHELIAL CELL,UR MANY /LPF
[2019-07-09 13:27] LABS: BACTERIA,URINE 0 /HPF (0-FEW); TRICHOMONAS,URINE PRESENT
[2019-07-09] MEDS ORDERED: ONDANSETRON PF 4 MG/2 ML VIAL. IVP ONE (14:00)
[2019-07-09] MEDS ORDERED: METR500T PO (14:13)
[2019-07-09] MEDS ORDERED: ONDA4TAB7 PO (14:14)
[2019-07-09] MEDS ORDERED: ACETAMINOPHEN 325 MG TABLET. PO ONE (14:15)
[2019-07-09] MEDS ORDERED: metroNIDAZOLE 500 MG TABLET PO ONE (14:30)
[2019-07-09 14:44] VITALS: BP 113/59
== END 2019-07-09 15:08 | disposition home or self-care (01) ==
LOC: ER 10:41
DX: O03.9 Complete or unspecified spontaneous abortion without complication (principal); O98.311 Other infections with a predominantly sexual mode of transmission complicating pregnancy, first trimester; A59.01 Trichomonal vulvovaginitis; G43.909 Migraine, unspecified, not intractable, without status migrainosus; Z3A.01 Less than 8 weeks gestation of pregnancy; Z88.5 Allergy status to narcotic agent; Z88.6 Allergy status to analgesic agent; Z88.8 Allergy status to other drugs, medicaments and biological substances
CPT/HCPCS: 36415; 76801; 76817; 80053; 81001; 81025; 83690; 84702; 85025; 87086; 96361; 96374; 99284; J2405; J7030

== ENCOUNTER 2020-10-07 11:15 | Emergency (ER) | payer SELFPAY ==
[~2020-10-07] VITALS: Ht 170.2 cm; Wt 105.2 kg
[~2020-10-07 11:15] MED LIST changes: +METR500T PO
[2020-10-07] MEDS ORDERED: FAMOTIDINE 20 MG/2 ML VIAL IVP ONE (12:30)
[2020-10-07] MEDS ORDERED: KETOROLAC 15 MG/ML VIAL. IVP ONE (12:30)
[2020-10-07] MEDS ORDERED: IV NORMAL SALINE 1000ML BAG 1,000 ML IV ONE (12:30)
[2020-10-07] MEDS ORDERED: ONDANSETRON PF 4 MG/2 ML VIAL. IVP ONE (12:30)
[2020-10-07 12:47] LABS: BILIRUBIN,URINE SMALL (NEG); CLARITY,URINE CLOUDY; COLOR,URINE AMBER; NITRITE,URINE NEGATIVE (NEG); PROTEIN,URINE 30 mg/dL (NEG-TRACE)
[2020-10-07 13:04] LABS: BASO # 0.1 x10^3/uL (0.0-0.2); BASO % 1 % (0-3); EOS % 0 % (0-3); HEMATOCRIT 38.4 % (36.0-47.0); HEMOGLOBIN 13.3 g/dL (12.0-15.5); LYMPH # 2.2 x10^3/uL (1.0-4.8); LYMPH % 23 % (24-48); MEAN CORPUSCULAR HEMOGLOBIN 33 pg (25-35); MEAN CORPUSCULAR HGB CONC 35 g/dL (31-37); MEAN CORPUSCULAR VOLUME 96 fL (79-100); MONO # 0.6 x10^3/uL (0.0-1.1); MONO % 6 % (0-9); NEUT # 6.7 x10^3/uL (1.8-7.7); NEUT % 70 % (31-73); PLATELET COUNT 190 x10^3/uL (140-400); RED CELL DISTRIBUTION WIDTH 12.3 % (11.5-14.5); WHITE BLOOD COUNT 9.6 x10^3/uL (4.0-11.0)
[2020-10-07 13:06] LABS: BACTERIA,URINE MANY /HPF (0-FEW); WBC,URINE 20-40 /HPF (0-4)
[2020-10-07 13:26] LABS: CALCIUM 9.1 mg/dL (8.5-10.1); CREATININE 0.8 mg/dL (0.6-1.0); GFR 82.6; POTASSIUM 3.4 mmol/L (3.5-5.1)
[2020-10-07 13:32] LABS: ALBUMIN 4.2 g/dL (3.4-5.0); ALBUMIN/GLOBULIN RATIO 1.3 (1.0-1.7); TOTAL BILIRUBIN 0.5 mg/dL (0.2-1.0); TOTAL PROTEIN 7.4 g/dL (6.4-8.2)
[2020-10-07] MEDS ORDERED: FAMO-63 PO (14:14)
[2020-10-07] MEDS ORDERED: ONDA4TAB12 PO (14:14)
[2020-10-07] MEDS ORDERED: CEPH500C PO (14:14)
[2020-10-07] MEDS ORDERED: cefTRIAXone IV Push 1 GM VIAL. IVP ONE (14:15)
--- NOTE | 2020-10-07 14:16 | PHYS DOC ---
Past Medical History Past Medical History: Migraines, Other Additional Past Medical Histor: Lupus, Gall stones Past Surgical History: Other Additional Past Surgical Histo: Gastric sleeve Smoking Status: Never Smoker Alcohol Use: None Drug Use: None General Adult EDM: Chief Complaint: ABDOMINAL PAIN HPI: HPI: Patient is a 34-year-old female presents with report of nausea and vomiting x24 hours. Patient also reports associated loss of taste and smell. Patient reports past medical history of lupus and is concerned of possible exacerbation as she has had prior episodes which cause vomiting. Denies any diarrhea. Denies fever or chills. Review of Systems: Review of Systems: Constitutional: Denies fever or chills Eyes: Denies redness or eye pain HENT: Reports nasal congestion and loss of taste and smell; denies sore throat Respiratory: Denies cough or shortness of breath Cardiovascular: Denies chest pain or palpitations GI: Denies abdominal pain; reports nausea and vomiting : Denies dysuria or hematuria Musculoskeletal: Denies back pain or joint pain Integument: Denies rash or skin lesions Neurologic: Reports headache; denies focal weakness or sensory changes Complete systems were reviewed and found to be within normal limits, except as documented in this note. Heart Score: C/O Chest Pain: N/A Current Medications: Current Medications Medications (Trade) Dose Ordered Sig/Jose Start Time Stop Time Status Last Admin Dose Admin Ceftriaxone Sodium (Rocephin) 1 gm 1X ONCE 10/07/20 14:15 10/07/20 14:16 Famotidine (Pepcid Vial) 20 mg 1X ONCE 10/07/20 12:30 10/07/20 12:33 DC 10/07/20 12:58 20 MG Ketorolac Tromethamine (Toradol 15mg Vial) 15 mg 1X ONCE 10/07/20 12:30 10/07/20 12:33 DC 10/07/20 13:04 15 MG Ondansetron HCl (Zofran) 4 mg 1X ONCE 10/07/20 12:30 10/07/20 12:33 DC 10/07/20 13:01 4 MG Sodium Chloride 1,000 ml @ 1,000 mls/hr 1X ONCE 10/07/20 12:30 10/07/20 13:29 DC 10/07/20 12:56 1,000 MLS/HR Allergies: Allergies: Allergies Coded Allergies Type Severity Reaction Last Updated Verified diphenhydramine Allergy Intermediate Rash 10/07/20 No gelatin Allergy Intermediate Rash 10/07/20 No tramadol Allergy Intermediate Rash 10/07/20 No Physical Exam: PE: Constitutional: Well developed, well nourished, no acute distress, non-toxic appearance HENT: Normocephalic, atraumatic Eyes: PERRL, EOMI, conjunctiva normal, no discharge Neck: Normal range of motion, no tenderness, supple, no meningeal signs Lungs & Thorax: No respiratory distress, equal chest rise and fall Abdomen: Soft, no tenderness Skin: Warm, dry, no erythema, no rash Back: No tenderness, no CVA tenderness Extremities: No tenderness, ROM intact, no edema Neurologic: Alert and oriented X 3, normal motor function, normal sensory function, no focal deficits noted Psychologic: Affect normal, judgment normal Current Patient Data: Labs: Laboratory Tests Test 10/07/20 12:35 10/07/20 12:38 10/07/20 12:51 Urine Collection Type Unknown Urine Color Jocelyn Urine Clarity Cloudy Urine pH 6.0 (<5.0-8.0) Urine Specific [place] 1.025 (1.000-1.030) Urine Protein 30 mg/dL (NEG-TRACE) Urine Glucose (UA) Negative mg/dL (NEG) Urine Ketones (Stick) 40 mg/dL (NEG) Urine Blood Moderate (NEG) Urine Nitrite Negative (NEG) Urine Bilirubin Small (NEG) Urine Urobilinogen Dipstick 1.0 mg/dL (0.2 mg/dL) Urine Leukocyte Esterase Moderate (NEG) Urine RBC 1-2 /HPF (0-2) Urine WBC 20-40 /HPF (0-4) Urine Squamous Epithelial Cells Many /LPF Urine Bacteria Many /HPF (0-FEW) Urine Mucus Marked /LPF POC Urine HCG, Qualitative Hcg negative (Negative) White Blood Count 9.6 x10^3/uL (4.0-11.0) Red Blood Count 4.00 x10^6/uL (3.50-5.40) Hemoglobin 13.3 g/dL (12.0-15.5) Hematocrit 38.4 % (36.0-47.0) Mean Corpuscular Volume 96 fL (79-100) Mean Corpuscular Hemoglobin 33 pg (25-35) Mean Corpuscular Hemoglobin Concent 35 g/dL (31-37) Red Cell Distribution Width 12.3 % (11.5-14.5) Platelet Count 190 x10^3/uL (140-400) Neutrophils (%) (Auto) 70 % (31-73) Lymphocytes (%) (Auto) 23 % (24-48) L Monocytes (%) (Auto) 6 % (0-9) Eosinophils (%) (Auto) 0 % (0-3) Basophils (%) (Auto) 1 % (0-3) Neutrophils # (Auto) 6.7 x10^3/uL (1.8-7.7) Lymphocytes # (Auto) 2.2 x10^3/uL (1.0-4.8) Monocytes # (Auto) 0.6 x10^3/uL (0.0-1.1) Eosinophils # (Auto) 0.0 x10^3/uL (0.0-0.7) Basophils # (Auto) 0.1 x10^3/uL (0.0-0.2) Sodium Level 141 mmol/L (136-145) Potassium Level 3.4 mmol/L (3.5-5.1) L Chloride Level 104 mmol/L (98-107) Carbon Dioxide Level 28 mmol/L (21-32) Anion Gap 9 (6-14) Blood Urea Nitrogen 10 mg/dL (7-20) Creatinine 0.8 mg/dL (0.6-1.0) Estimated GFR (Cockcroft-Gault) 82.6 BUN/Creatinine Ratio 13 (6-20) Glucose Level 101 mg/dL (70-99) H Calcium Level 9.1 mg/dL (8.5-10.1) Total Bilirubin 0.5 mg/dL (0.2-1.0) Aspartate Amino Transferase (AST) 20 U/L (15-37) Alanine Aminotransferase (ALT) 32 U/L (14-59) Alkaline Phosphatase 79 U/L (46-116) Total Protein 7.4 g/dL (6.4-8.2) Albumin 4.2 g/dL (3.4-5.0) Albumin/Globulin Ratio 1.3 (1.0-1.7) Lipase 155 U/L (73-393) Laboratory Tests 10/07/20 12:51 Laboratory Tests 10/07/20 12:51 Vital Signs: Vital Signs Date Time Temp Pulse Resp B/P (MAP) Pulse Ox O2 Delivery O2 Flow Rate FiO2 10/07/20 13:06 59 16 124/56 (78) 97 Room Air 10/07/20 12:07 97.8 97.8 EKG: EKG: [] Radiology/Procedures: Radiology/Procedures: [] Course & Med Decision Making: Course & Med Decision Making Pertinent Labs and Imaging studies reviewed. (See chart for details) Patient presents with nausea and vomiting with associated headache and loss of taste and or smell. Patient reports has had nausea and vomiting secondary to a lupus flare in the past. Cannot exclude COVID-19. COVID-19 testing pending. Labs obtained and posted to chart. UA with signs of infection. Empiric antibiotic initiated. Patient stable for discharge with outpatient follow-up with PCP. Discussed findings and plan with patient, who acknowledges understanding and agreement. COVID-19 CRITERIA: The patient was evaluated during the global COVID-19 pandemic, and that diagnosis was suspected/considered upon their initial presentation. Their evaluation, treatment and testing was consistent with current guidelines for patients who present with complaints or symptoms that may be related to COVID-19. Lanie Disclaimer: Lanie Disclaimer: This electronic medical record was generated, in whole or in part, using a voice recognition dictation system. Departure Departure Impression: Primary Impression: Nausea and vomiting Qualified Codes: R11.2 - Nausea with vomiting, unspecified Additional Impressions: Suspected 2019 novel coronavirus infection Urinary tract infection Qualified Codes: N30.00 - Acute cystitis without hematuria Disposition: HOME / SELF CARE / HOMELESS Condition: STABLE Referrals: NO PCP (PCP) Patient Instructions: Clear Liquid Diet, [id number], Nausea and Vomiting, [id number], Urinary Tract Infection, [id number] Additional Instructions: You have been tested for or diagnosed with COVID-19. It is an infection caused by a new type of coronavirus. COVID-19 will cause cold-like or mild flu symptoms in most. It can cause more severe symptoms like problems breathing in some. There is no treatment for COVID-19. The body will clear the infection over time. Self-care will help to ease discomfort. Steps to Take: Self-Care Rest as needed. Healthy habits may help you feel better. Steps include: Choose healthy foods including fruits and vegetables. Drink water throughout the day. Get plenty of sleep each night. If you smoke, try to quit. It may ease breathing. Avoid alcohol. Keep Others Healthy The virus can spread to others. Droplets are released every time you sneeze or cough. The droplets can get into the mouth, nose, or eyes of people near you and lead to infection. To lower the chances of spreading COVID-19 to others: Stay at home until your doctor has said it is safe to leave. If you tested positive this will mean staying isolated until both of the following are true: At least 7 days have passed since the start of illness. You are free of fever for at least 72 hours without the use of medicine. During this time: - Avoid public areas, events, or transportation. Do not return to work or school until your doctor has said it is safe to do so. - Call ahead if you need to go to a medical center. Let them know you may have COVID-19. It will help them guide you where to go. They may also ask you to wear a facemask when you come to the office. - If you call for emergency medical services, let them know you may have COVID- 19. While at home: - Try to avoid close contact with others. Stay about 6 feet away. - If possible, spend most of your time in a separate room from others. - Use a face mask if you will be in close contact with others such as sharing a room or vehicle. - Have someone wipe down common surfaces in the home. Use household finished cloth checker every day on areas like doorknobs, counters, or sinks. - Cough or sneeze into a tissue. Throw the tissue away right after use. If a tissue is not available, cough or sneeze into your elbow. - Wash your hands often. Wash them after sneezing or coughing. Use soap and water and wash for at least 20 seconds. Alcohol based hand card cleaner can be used if soap and water is not available. - Do not prepare food for others. Avoid sharing personal items like forks, spoons, or toothbrushes. - Avoid close contact with pets while you are sick. There is no evidence of the virus passing to pets. This is a safety step until more is known about this virus. Isolation can be frustrating. Social interaction can help. Keep in touch with friends and family through phone and tech options. You can still interact with others in your home, just keep a safe distance of about 6 feet. Follow-up: Your doctors office will check in with you to see if there are any changes in your health. You may be asked to keep track of symptoms to share with them. They will also let you know when you are clear to be in public again. Problems to Look Out For: Contact your doctor if your recovery is not going as you expect. Get emergency care if you have problems such as: - Trouble breathing - Nonstop chest pain or pressure - Changes in awareness, confusion, or problems waking - Lips or face have bluish color - Worsening of symptoms If you think you have an emergency, call for emergency medical services right away. As taken from [employer] [facility] Script[facility] Cephalexin (KEFLEX) 500 Mg Capsule 1 CAP PO TID for 7 Days, #21 CAP Prov: SONIDO ALVAREZ DO 10/07/20 Famotidine (PEPCID) 20 Mg Tablet 20 MG PO BID for 7 Days, #14 TAB Prov: SONIDO ALVAREZ DO 10/07/20 Ondansetron (ONDANSETRON ODT) 4 Mg Tab.rapdis 1 TAB PO PRN Q6-8HRS PRN for NAUSEA, #16 TAB Prov: SONIDO ALVAREZ DO 10/07/20 COVID-19 Assessment: COVID-19 Patient Risks: Age 65 or older: No Sign of co-morbidity: No Exp to person + for COVID: No Exp to PUI: No Travel from affected area: No Lower respiratory symptoms: No Fever: Yes Other: Yes PPE Use: Full PPE with N95 mask or PAPR: Yes SONIDO ALVAREZ DO Oct 07, 2020 14:16
[2020-10-07 14:30] VITALS: BP 106/54
--- NOTE | 2020-10-08 09:41 | NUR ---
IP: Attempted to contact pt concerning covid results. No answer, left a voicemail to return the call.
--- NOTE | 2020-10-08 10:02 | NUR ---
IP: Pt returned my call. Informed pt of negative covid results. Pt verbalized understanding.
== END 2020-10-07 14:45 | disposition home or self-care (01) ==
LOC: ER 11:15
DX: N30.00 Acute cystitis without hematuria (principal); Z20.822 Contact with and (suspected) exposure to COVID-19; R11.2 Nausea with vomiting, unspecified; G43.909 Migraine, unspecified, not intractable, without status migrainosus; Z88.5 Allergy status to narcotic agent; Z88.6 Allergy status to analgesic agent; Z88.8 Allergy status to other drugs, medicaments and biological substances
CPT/HCPCS: 36415; 80053; 81001; 81025; 83690; 85025; 87086; 96361; 96374; 96375; 99285; J0696; J1885; J2405; J3490; J7030; U0003; U0005

== ENCOUNTER 2021-03-12 17:44 | Emergency (ER) | payer SELFPAY ==
[~2021-03-12 17:44] MED LIST changes: +CEPH500C PO; +FAMO-63 PO
== END 2021-03-12 21:42 | disposition left against medical advice (07) ==
LOC: ER 17:44
DX: L98.8 Other specified disorders of the skin and subcutaneous tissue (principal); Z53.21 Procedure and treatment not carried out due to patient leaving prior to being seen by health care provider

== ENCOUNTER 2021-04-02 11:57 | Emergency (ER) | payer SELFPAY ==
[~2021-04-02] VITALS: Ht 170.2 cm; Wt 104.5 kg
[~2021-04-02 11:57] MED LIST changes: +AMOX1TAB10 PO
--- NOTE | 2021-04-02 12:11 | ED.ADGEN ---
Past Medical History Past Medical History: Migraines, Other Additional Past Medical Histor: Lupus, Gall stones Past Surgical History: Other Additional Past Surgical Histo: unknown Smoking Status: Unknown if ever smoked Alcohol Use: None Drug Use: None General Adult EDM: Chief Complaint: OVERDOSE HPI: HPI: Patient is a 35-year-old female who arrives via EMS after experiencing the effects of a heroin injection. Patient reportedly used 10 cc of IV heroin and then a bystander contacted paramedics related to decrease in the patient's mental status. Upon arrival paramedics noted the patient to be somnolent with decreased respirations. Patient was subsequently given 2 mg of Narcan. Patient had an abrupt return of consciousness. Patient remains awake and alert now and denies any medical problems. Patient states she was not trying to harm her self. She denies any other ingestions. She is awake, alert and nontoxic- appearing Review of Systems: Review of Systems: Constitutional: Denies fever or chills. [] Eyes: Denies change in visual acuity. [] HENT: Denies nasal congestion or sore throat. [] Respiratory: Denies cough or shortness of breath. [] Cardiovascular: Denies chest pain or edema. [] GI: Denies abdominal pain, nausea, vomiting, bloody stools or diarrhea. [] : Denies dysuria. [] Musculoskeletal: Denies back pain or joint pain. [] Integument: Denies rash. [] Neurologic: Denies headache, focal weakness or sensory changes. [] Endocrine: Denies polyuria or polydipsia. [] Lymphatic: Denies swollen glands. [] Psychiatric: Denies depression or anxiety. [] Current Medications: Current Medications Medications (Trade) Dose Ordered Sig/Jose Start Time Stop Time Status Last Admin Dose Admin Sodium Chloride 1,000 ml @ 1,000 mls/hr 1X ONCE 04/02/21 12:15 04/02/21 13:14 DC 04/02/21 12:32 1,000 MLS/HR Allergies: Allergies: Allergies Coded Allergies Type Severity Reaction Last Updated Verified diphenhydramine Allergy Intermediate Rash 10/07/20 No gelatin Allergy Intermediate Rash 10/07/20 No tramadol Allergy Intermediate Rash 10/07/20 No Physical Exam: PE: Constitutional: Well developed, well nourished, no acute distress, non-toxic appearance. [] HENT: Normocephalic, atraumatic, bilateral external ears normal, oropharynx moist, no oral exudates, nose normal. [] Eyes: PERRLA, EOMI, conjunctiva normal, no discharge. [] Neck: Normal range of motion, no tenderness, supple, no stridor. [] Cardiovascular:Heart rate regular rhythm, no murmur [] Lungs & Thorax: Bilateral breath sounds clear to auscultation [] Abdomen: Bowel sounds normal, soft, no tenderness, no masses, no pulsatile masses. [] Skin: Warm, dry, no erythema, no rash. [] Back: No tenderness, no CVA tenderness. [] Extremities: No tenderness, no cyanosis, no clubbing, ROM intact, no edema. [] Neurologic: Alert and oriented X 3, normal motor function, normal sensory fu nction, no focal deficits noted. [] Psychologic: Affect normal, judgement normal, mood normal. [] Current Patient Data: Vital Signs: Vital Signs Date Time Temp Pulse Resp B/P (MAP) Pulse Ox O2 Delivery O2 Flow Rate FiO2 04/02/21 11:57 97.7 104 19 131/79 (96) 99 Room Air 97.7 EKG: EKG: EKG was obtained at 12:05 PM and reveals a sinus tachycardia with ventricular to 101 bpm. This is an otherwise normal EKG. There is no STEMI present. Heart Score: C/O Chest Pain: No Risk Factors: Risk Factors: DM, Current or recent (<one month) smoker, HTN, HLP, family history of CAD, obesity. Risk Scores: Score 0 - 3: 2.5% MACE over next 6 weeks - Discharge Home Score 4 - 6: 20.3% MACE over next 6 weeks - Admit for Clinical Observation Score 7 - 10: 72.7% MACE over next 6 weeks - Early Invasive Strategies Radiology/Procedures: Radiology/Procedures: [] Course & Med Decision Making: Course & Med Decision Making Pertinent Labs and Imaging studies reviewed. (See chart for details) Patient remained awake, alert and in no acute distress since receiving 1 dose of Narcan. Patient reports to me that she did feel nauseated and stated she wanted to utilize the bathroom in order to vomit as she did not like to use an emesis bag. Patient was provided independent access to the bathroom as she continues to deny any history of suicidal or homicidal ideation. After a thorough search of the bathroom, the patient's gown was found in the bathroom after the patient did not return to her bed. A thorough search of her room as well as all the bathrooms and the remainder the emergency department was undertaken, the patient was unable to be found. It must be presumed the patient eloped. Hospital security as well as local police have been contacted as there was no evidence that the IV was placed was removed and it was presumed the patient has that in place as well. At no point did she have any evidence of respiratory depression or deterioration of her mental status. Dragon Disclaimer: Dragon Disclaimer: This electronic medical record was generated, in whole or in part, using a voice recognition dictation system. Departure Departure Impression: Primary Impression: Heroin abuse Additional Impression: Eloped from emergency department Disposition: 07 LEFT AWOL/ELOPED Condition: GUARDED Referrals: NO PCP (PCP) Patient Instructions: Heroin Abuse and Withdrawal Additional Instructions: Stop using heroin. Problem Qualifiers KIESHA PUGA DO Apr 02, 2021 12:11
[2021-04-02] MEDS ORDERED: IV NORMAL SALINE 1000ML BAG 1,000 ML IV ONE (12:15)
[2021-04-02 13:04] VITALS: BP 109/77
--- NOTE | 2021-04-03 08:51 | EKG ---
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
== END 2021-04-02 13:31 | disposition left against medical advice (07) ==
LOC: ER 11:57
DX: F11.10 Opioid abuse, uncomplicated (principal); G43.909 Migraine, unspecified, not intractable, without status migrainosus; Z88.5 Allergy status to narcotic agent; Z88.6 Allergy status to analgesic agent; Z88.8 Allergy status to other drugs, medicaments and biological substances
CPT/HCPCS: 93005; 99284; J7030